=== PATIENT | male | born 1940 | race Caucasian/White ===

== ENCOUNTER 2017-05-02 09:45 | Emergency (ER) | payer OTHER ==
[~2017-05-02] VITALS: Ht 180.3 cm; Wt 75.5 kg
[~2017-05-02 09:45] MED LIST: ALBUAER2 INH; BRVIN INH; IPRASOL4 INH; LACTCAP3 PO; LEVO-18 PO; MONT1TAB3 PO; OXYC-106 PO; PLMINS INH
[2017-05-02 09:49] VITALS: TEMP 36.6; Ht 180.3 cm; Wt 75.5 kg
[2017-05-02] MEDS ORDERED: ALBUT/IPRATROP 3MG/0.5MG NEB 3 ML VIAL INH STA (09:52)
[2017-05-02] MEDS ORDERED: SODIUM CHLORIDE 0.9% 1000ML 1,000 ML IV STA (09:52)
[2017-05-02 10:02] VITALS: PULSE 92; O2SAT 100; O2SAT 97
[2017-05-02 10:07] LABS: BASO % 0.6 %; BASO ABS # 0.06 K/uL (0-0.2); EOS % 6.4 %; HEMATOCRIT 45.8 % (42-52); IG% 0.4 %; LYMPH % 45.9 %; LYMPH ABS # 4.42 K/uL (1.2-3.4); MEAN CELL VOLUME 96.8 fL (80-100); MEAN CORPUSCULAR HEMOGLOBIN 32.6 pg (25-34); MEAN CORPUSCULAR HGB CONC 33.6 g/dl (32-36); MONO % 8.6 %; NEUT % 38.1 %; PLATELET COUNT 211 K/uL (130-400); RED BLOOD COUNT 4.73 M/uL (4.7-6.1); WHITE BLOOD COUNT 9.62 K/uL (4.8-10.8)
--- NOTE | 2017-05-02 10:15 | EMERGENCY ROOM VISIT NOTE ---
History Report prepared by Sylvia: Duncan Mackey Under the Supervision of: Dr. Asael Hutchinson M.D. First contact with patient: 09:47 Chief Complaint: RESPIRATORY PROBLEMS Stated Complaint: RESPIRATORY History of Present Illness The patient is a 76 year old male who presents to the Emergency Room by EMS with complaints of persistent shortness of breath beginning this morning. He was given 4 DuoNeb treatments, Nitroglycerin and received 125 mg of Solu-Medrol en route. He states that his symptoms began this morning after waking up and going to the bathroom. The patient states that his breathing was at his baseline prior to leaving the bathroom this morning. He denies any fevers, or coughing. He used breathing treatments today prior to the arrival of EMS which did not improve his symptoms. He states that he has been using steroids at home which typically improves his breathing. The patient has a history of COPD. He was given the Nitroglycerin en route for elevated blood pressure. Source of History: patient Onset: This morning Quality: other (shortness of breath) Timing: other (persistent) Modifying Factors (Relieving): other (Steroids) Associated Symptoms: No fevers, No cough Review of Systems See HPI for pertinent positives & negatives. A total of 10 systems reviewed and were otherwise negative. Past Medical & Surgical Medical Problems: (1) Arthritis (2) COPD exacerbation (3) Diab Amisha Wo Compl, Type Ii Or Unspec Type, Not Uncntrld Family History Diabetes mellitus Heart disease Lung disease Social History Smoking Status: Current Every Day Smoker Alcohol Use: none Drug Use: none Marital Status: Housing Status: lives with significant other Occupation Status: unemployed Current/Historical Medications Scheduled Budesonide/Formoterol Fumarate (Symbicort 80-4.5 Mcg/Act), 2 PUFFS INH BID Prednisone (Prednisone), 5 MG PO DAILY Prednisone (Prednisone), 0 PO DAILY Tiotropium [place] (Spiriva Handihaler), 1 CAP INH DAILY Scheduled PRN Albuterol Hfa (Ventolin Hfa), 2-4 PUFFS INH Q6H PRN for SOB/Wheezing Albuterol Sulf (Proventil 0.083% 2.5MG/3ML), 2.5 MG INH QID PRN for SOB/Wheezing Allergies Coded Allergies: Cortisone (Verified Adverse Reaction, Intermediate, BODY FEELS LIKE IT'S EXPLODING, 10/23/15) Physical Exam Vital Signs Date Time Temp Pulse Resp B/P (MAP) Pulse Ox O2 Delivery O2 Flow Rate FiO2 05/02/17 12:33 92 18 146/94 95 05/02/17 11:45 90 24 112/75 95 Room Air 05/02/17 11:03 85 24 116/84 99 BiPAP 30 05/02/17 10:05 89 05/02/17 10:02 100 BiPAP 30 05/02/17 10:02 92 97 30 05/02/17 09:49 94 Room Air 05/02/17 09:49 36.6 99 28 136/86 95 Room Air Physical Exam GENERAL: Patient is in no acute distress. HEENT: No acute trauma, normocephalic atraumatic, mucous membranes moist, no nasal congestion, no scleral icterus. NECK: No stridor, no adenopathy, no meningismus, trachea is midline. LUNGS: Bilateral wheezing with equal breath sounds. Mild respiratory distress. Speaking in short sentences. Increased respiratory rate. HEART: Unable to auscultate cardiac tones secondary to lung sounds. ABDOMEN: Soft, nontender, bowel sounds positive, no hernias, no peritonitis. EXTREMITIES: No cyanosis or edema, full range of motion of all the joints without pain or difficulty, no signs for acute trauma. NEUROLOGIC: Oriented x 3, no acute motor or sensory deficits, no focal weakness. SKIN: No rash, no jaundice, no diaphoresis. Medical Decision & Procedures ER Provider Diagnostic Interpretation: X-ray results as stated below per interpretation by me and the radiologist: CHEST ONE VIEW PORTABLE FINDINGS: The cardiac and mediastinal contours remain stable. There is no failure. There is no focal pulmonary consolidation. There are no pleural effusions. There is scattered postinflammatory calcifications within the upper lung zones.[ IMPRESSION: No active disease in the chest. Electronically signed by: Ag Peterson M.D. 05/02/2017 10:23 AM Laboratory Results 05/02/17 09:30 Red Blood Count 4.73, Mean Corpuscular Volume 96.8, Mean Corpuscular Hemoglobin 32.6, Mean Corpuscular Hemoglobin Concent 33.6, Mean Platelet Volume 11.0, Neutrophils (%) (Auto) 38.1, Lymphocytes (%) (Auto) 45.9, Monocytes (%) (Auto) 8.6, Eosinophils (%) (Auto) 6.4, Basophils (%) (Auto) 0.6, Neutrophils # (Auto) 3.65, Lymphocytes # (Auto) 4.42, Monocytes # (Auto) 0.83, Eosinophils # (Auto) 0.62, Basophils # (Auto) 0.06 05/02/17 09:30 Test 05/02/17 09:30 White Blood Count 9.62 K/uL (4.8-10.8) Red Blood Count 4.73 M/uL (4.7-6.1) Hemoglobin 15.4 g/dL (14.0-18.0) Hematocrit 45.8 % (42-52) Mean Corpuscular Volume 96.8 fL (80-100) Mean Corpuscular Hemoglobin 32.6 pg (25-34) Mean Corpuscular Hemoglobin Concent 33.6 g/dl (32-36) Platelet Count 211 K/uL (130-400) Mean Platelet Volume 11.0 fL (7.4-10.4) Neutrophils (%) (Auto) 38.1 % Lymphocytes (%) (Auto) 45.9 % Monocytes (%) (Auto) 8.6 % Eosinophils (%) (Auto) 6.4 % Basophils (%) (Auto) 0.6 % Neutrophils # (Auto) 3.65 K/uL (1.4-6.5) Lymphocytes # (Auto) 4.42 K/uL (1.2-3.4) Monocytes # (Auto) 0.83 K/uL (0.11-0.59) Eosinophils # (Auto) 0.62 K/uL (0-0.5) Basophils # (Auto) 0.06 K/uL (0-0.2) RDW Standard Deviation 51.5 fL (36.4-46.3) RDW Coefficient of Variation 14.4 % (11.5-14.5) Immature Granulocyte % (Auto) 0.4 % Immature Granulocyte # (Auto) 0.04 K/uL (0.00-0.02) Red Blood Cell Morphology Unremarkable Anion Gap 8.0 mmol/L (3-11) Est Creatinine Clear Calc Drug Dose 62.7 ml/min Estimated GFR () 76.2 Estimated GFR (Non- 65.8 BUN/Creatinine Ratio 19.7 (10-20) Calcium Level 9.0 mg/dl (8.5-10.1) Magnesium Level 2.3 mg/dl (1.8-2.4) Total Bilirubin 0.7 mg/dl (0.2-1) Aspartate Amino Transf (AST/SGOT) 19 U/L (15-37) Alanine Aminotransferase (ALT/SGPT) 24 U/L (12-78) Alkaline Phosphatase 89 U/L (45-117) Troponin I 0.033 ng/ml (0-0.045) Total Protein 6.9 gm/dl (6.4-8.2) Albumin 3.7 gm/dl (3.4-5.0) Globulin 3.2 gm/dl (2.5-4.0) Albumin/Globulin Ratio 1.2 (0.9-2) Laboratory results reviewed by me. Medications Administered Medications (Trade) Dose Ordered Sig/Eros Route Start Time Stop Time Status Last Admin Dose Admin Albuterol/ Ipratropium (Duoneb) 12 ml NOW STAT INH 05/02/17 09:52 05/02/17 09:55 DC 05/02/17 10:26 12 ML Sodium Chloride 1,000 ml @ 125 mls/hr Q8H STAT IV 05/02/17 09:52 05/02/17 17:51 05/02/17 10:28 125 MLS/HR ECG Indication: SOB/dyspnea Rate (beats per minute): 87 Rhythm: sinus rhythm Findings: PAC, no acute ischemic change, no ectopy ED Course 0950: The patient was evaluated in room A9B. A complete history and physical exam was performed. Ordered BiPAP for the patient. 0952: Ordered DuoNeb 12 mL INH, Sodium Chloride 1000 ml @ 125 mls/hr IV. 1128: I spoke with the patient. He does not want to stay in the hospital. BiPAP was removed to see how the patient was able to breath on room air. 1206: Reevaluated the patient. His breathing is at his baseline according to him. Discussed results and discharge instructions: he verbalized understanding and agreement. The patient is ready for discharge. Medical Decision The patient is a 76 year old male who presents to the ED with complaints of shortness of breath. Differential diagnoses considered include exacerbation of COPD, CHF, pneumonia, pneumothorax, bronchitis, and cardiac ischemia. Blood pressure screening: Patient was found to have a slightly elevated blood pressure due to circumstances. I do not believe that the patient requires hypertension monitoring. Medication Reconciliation: I attest that I have personally reviewed the patient' s current medication list. There is no leukocytosis or concerning anemia. No significant electrolyte abnormality, kidney failure or hepatitis. EKG shows a sinus rhythm, no acute ischemia. Cardiac enzyme testing times one is not consistent with acute cardiac injury. Chest film shows COPD, no CHF, pneumothorax or pneumonia. The patient had already received IV Solu-Medrol. In our ED, he was placed on BiPAP with a continuous DuoNeb. Within about an hour or 2, the patient felt markedly better. He BiPAP was discontinued and he felt at baseline. I discussed a hospital stay with him given the circumstances, he has refused. The patient is being discharged on a prednisone taper. He will continue his nebulizers as an outpatient. He will see his doctor this week. If his breathing worsens, he has agreed to return back for reassessment. The patient appears to be suffering from an exacerbation of COPD. Impression Primary Impression: SOB (shortness of breath) Additional Impression: COPD exacerbation Scribe Attestation The scribe's documentation has been prepared under my direction and personally reviewed by me in its entirety. I confirm that the note above accurately reflects all work, treatment, procedures, and medical decision making performed by me. Departure Information Dispostion Home / Self-Care Prescriptions Prednisone (Prednisone) 20 Mg Tab 0 PO DAILY, #14 TAB 3 TABS DAILY FOR 2 DAYS, THEN 2 TABS DAILY FOR 2 DAYS, THEN 1 TAB DAILY FOR 2 DAYS, THEN 1/2 TAB DAILY FOR 2 DAYS. Prov: Asael Hutchinson M.D. 05/02/17 Referrals No Doctor, Assigned (PCP) Forms HOME CARE DOCUMENTATION FORM, IMPORTANT VISIT INFORMATION, WORK / SCHOOL INSTRUCTIONS Patient Instructions My [facility] Entrisphere Additional Instructions continue nebs every 4 hours start prednisone taper tomorrow see gabbie hobson this week return for worsening breathing or symptoms Problem Qualifiers
[2017-05-02 10:23] LABS: CREATININE 1.1 mg/dl (0.60-1.40)
[2017-05-02 10:24] LABS: BUN/CREATININE RATIO 19.7 (10-20); MAGNESIUM 2.3 mg/dl (1.8-2.4); POTASSIUM 4.1 mmol/L (3.5-5.1)
--- NOTE | 2017-05-02 10:24 | DIAGNOSTIC IMAGING REPORT ---
CHEST ONE VIEW PORTABLE CLINICAL HISTORY: Respiratory distress COMPARISON STUDY: 10/23/2015 FINDINGS: The cardiac and mediastinal contours remain stable. There is no failure. There is no focal pulmonary consolidation. There are no pleural effusions. There is scattered postinflammatory calcifications within the upper lung zones.[ IMPRESSION: No active disease in the chest. Electronically signed by: Ag Peterson M.D. 05/02/2017 10:23 AM Dictated Date/Time: 05/02/2017 10:22 AM
[2017-05-02 10:28] LABS: ALB/GLOB RATIO 1.2 (0.9-2)
[2017-05-02 10:33] LABS: COMPLETE YES
[2017-05-02] MEDS ORDERED: SPRIN/30 INH (11:52)
[2017-05-02] MEDS ORDERED: PRED10TA PO (11:52)
[2017-05-02] MEDS ORDERED: VNTHFA/IN INH (11:52)
[2017-05-02] MEDS ORDERED: ALBINS/ INH (11:52)
[2017-05-02] MEDS ORDERED: SYMIN8045 INH (11:52)
[2017-05-02] MEDS ORDERED: PRED20TA PO (12:23)
[2017-05-02 12:33] VITALS: BP 146/94; PULSE 92; O2SAT 95
== END 2017-05-02 12:34 | disposition home or self-care (01) ==
LOC: EDBD 09:45 → C.EDA 09:47
DX: R06.02 Shortness of breath (principal); J44.1 Chronic obstructive pulmonary disease with (acute) exacerbation; M19.90 Unspecified osteoarthritis, unspecified site; E11.9 Type 2 diabetes mellitus without complications; Z83.3 Family history of diabetes mellitus; Z82.49 Family history of ischemic heart disease and other diseases of the circulatory system; F17.200 Nicotine dependence, unspecified, uncomplicated

== ENCOUNTER 2021-12-02 12:21 | Inpatient (IN) ==
--- NOTE | 2021-12-02 13:49 | XRay Report ---
XR ribs RT min 2V w CXR1V HISTORY: 81 years-old Male r rib pain acute right-sided rib pain COMPARISON: Chest radiograph 05/02/2017 TECHNIQUE: AP view of the chest with 4 views of the right ribs FINDINGS: Scattered bilateral calcifications redemonstrated. The cardiomediastinal and hilar silhouettes are un changed. No pneumothorax, pleural effusion, airspace consolidation or overt pulmonary edema. Rotator cuff calcific tendinosis of the right shoulder. No acute displaced rib fracture. IMPRESSION: 1. No acute processes of the chest. 2. No acute displaced rib fracture or pneumothorax. ACT 112: Negative or not required by law. The above report was generated using voice recognition software. It may contain grammatical, syntax o r spelling errors. Electronically signed by: Bijan Bauer M.D. 12/02/2021 1:48 PM
[2021-12-02 14:00] LABS: Basophils # (auto) 0.02 K/uL (0-0.2); Basophils % (auto) 0.2 %; Eosinophils # (auto) 0.09 K/uL (0-0.5); Eosinophils % (auto) 0.9 %; Hematocrit (blood only) 43.1 % (42-52); Hemoglobin 14.4 g/dL (14.0-18.0); Immature Granulocytes # (auto) 0.02 K/uL (0.00-0.02); Immature Granulocytes % (auto) 0.2 %; Lymphocytes # (auto) 1.35 K/uL (1.2-3.4); Lymphocytes % (auto) 13.5 %; Mean Corpuscular Hemoglobin 32.3 pg (25-34); Mean Corpuscular Hgb Conc 33.4 g/dL (32-36); Mean Corpuscular Volume 96.6 fL (80-100); Mean Platelet Volume 10.8 fL (7.4-10.4); Monocytes # (auto) 1.08 K/uL (0.11-0.59); Monocytes % (auto) 10.8 %; Neutrophils # (auto) 7.43 K/uL (1.4-6.5); Neutrophils % (auto) 74.4 %; Platelet Count 287 K/uL (130-400); RDW Coefficient of Variation 14.2 % (11.5-14.5); RDW Standard Deviation 51.2 fL (36.4-46.3); Red Blood Count 4.46 M/uL (4.7-6.1); White Blood Count 9.99 K/uL (4.8-10.8)
[2021-12-02] MEDS ORDERED: SODIUM CHLORIDE 0.9% 1000ML 1,000 ML IV SCH (14:15)
[2021-12-02 14:18] LABS: Alanine Aminotransferase 20 U/L (7-52); Albumin Globulin Ratio 1.4 (0.9-2); Albumin Level 3.8 gm/dl (3.4-5.0); Alkaline Phosphatase 69 U/L (34-104); Anion Gap 8 (3-11); Aspartate Aminotransferase 58 U/L (13-39); BUN Creatinine Ratio 37.9 (10-20); Bilirubin,Total 1.1 mg/dl (0.2-1.0); Blood Urea Nitrogen 25 mg/dl (6-23); Carbon Dioxide 28 mmol/L (21-32); Chloride 99 mmol/L (98-107); Est GFR (African American) 106.6 ml/min; Globulin 2.8 gm/dl (2.5-4.0); Glucose 84 mg/dl (70-99(Fasting)); Sodium 135 mmol/L (136-145); Total Protein 6.6 gm/dl (6.0-8.3)
[2021-12-02] MEDS ORDERED: SODIUM CHLORIDE 0.9% 1000ML 500 ML IV ONE (15:06)
[2021-12-02] MEDS ORDERED: ACETAMINOPHEN 1,000 MG/100 ML VIAL IV STA (15:06)
--- NOTE | 2021-12-02 15:06 | Emergency Department Note ---
History of Present Illness General Chief complaint: Rib Injury/Pain Stated complaint: R FLANK PAIN Time Seen by Provider: 12/02/21 14:26 Source: patient Mode of arrival: EMS Limitations: no limitations History of Present Illness Provider complaint: right side pain, fall Onset (ago): day(s) 1 Maximum Pain Intensity: 9 This is a 81-year-old male who presents via EMS due to concern for pain in his right side. Patient states he fell yesterday while attempting to get up out of the chair at home. He states no one was there at the time so he laid on the ground on his right-hand side for 5 to 6 hours. He states when his son's girlfriend eventually got home she helped him get up. He states pain persisted overnight into today. He states family was concerned due to the persistent pain and recommended he come in for evaluation. Patient states pain is waxing and w aning, worse with position, and mostly in his right flank. Patient denies any difficulty breathing although he was initially noted to be hypoxic by staff and was placed on 2 L via nasal cannula. Patient states he does not typically wear oxygen at home. Patient does have a history of COPD and does use nebulizer treatments. Patient states as a result of this incident yesterday he did not have anything to eat or drink. Patient denies any use of antiplatelet or anticoagulation therapy. Patient denies any accompanying neck pain, back pain, numbness or tingling. Patient denies any concern for extremity injury although does admit to right upper extremity pain. Patient denies head injury or loss of consciousness. Pt seen during a time of high acuity and national emergency pandemic while wearing PPE. Home Medications Medication Instructions Recorded Confirmed Type prednisone 5 mg tablet 15 mg PO DAILY 04/12/20 12/02/21 History albuterol sulfate 2.5 mg INHALATION Q6H PRN ml 10/15/20 12/02/21 History albuterol sulfate 90 mcg/actuation 2 puff INHALATION Q4H PRN g 10/15/20 12/02/21 History aerosol inhaler (Ventolin HFA) alendronate 70 mg tablet 70 mg PO Q7D tab 10/15/20 12/02/21 History aspirin 81 mg tablet,delayed 81 mg PO DAILY 10/15/20 12/02/21 History release cholecalciferol (vitamin D3) 25 25 mcg PO DAILY 10/15/20 12/02/21 History mcg (1,000 unit) capsule folic acid 1 mg tablet 1 mg PO DAILY 10/15/20 12/02/21 History tiotropium bromide 18 mcg capsule 1 cap INHALATION DAILY 10/15/20 12/02/21 History with inhalation device duloxetine 20 mg capsule,delayed 20 mg PO DAILY 12/02/21 12/02/21 History release finasteride 5 mg tablet 5 mg PO DAILY 12/02/21 12/02/21 History fluticasone 500 mcg-salmeterol 50 1 inh INHALATION BID 12/02/21 12/02/21 History mcg/dose blistr powdr for inhalation (Advair Diskus) metformin 500 mg tablet 500 mg PO BID 12/02/21 12/02/21 History nystatin 100,000 unit/mL oral 1 ml PO QID 12/02/21 12/02/21 History suspension rosuvastatin 10 mg tablet 10 mg PO DAILY 12/02/21 12/02/21 History tamsulosin 0.4 mg capsule 0.4 mg PO DAILY 12/02/21 12/02/21 History Allergies Allergy/AdvReac Type Severity Reaction Status Date / Time cortisone AdvReac Intermediate BODY FEELS Verified 12/02/21 18:00 LIKE IT'S EXPLODING Past Med/Surg History Medical History Anxiety and depression CAD (coronary artery disease) Chronic respiratory failure with hypoxia COPD (chronic obstructive pulmonary disease) Dementia Diabetes mellitus, type II Dyslipidemia PVD (peripheral vascular disease) Spinal stenosis Tobacco use Surgical History (Updated 12/02/21 @ 19:28 by Calista Portillo PA-C) No significant past surgical history Family History (Updated 12/02/21 @ 19:28 by Calista Portillo PA-C) Other COPD (chronic obstructive pulmonary disease) Social History (Updated 12/02/21 @ 19:29 by Calista Portillo PA-C) Smoking Status: Current every day smoker Hx Alcohol Use: No Hx Substance Use: No Preferred Language: Bulgarian [employer] Required: No Beliefs That Will Affect Care: None Current Living Situation: Family Current Living Situation Comment: lives with son and his girlfriend Feels Safe at Home: Yes Assistive Devices: Oxygen - Continuous and Walker Review of Systems A total of 10 systems reviewed and were otherwise negative All systems reviewed & are unremarkable except as noted in HPI & below Physical Exam Vital Signs Vital Signs - 24 hr 12/02/21 12:38 12/02/21 13:51 12/02/21 14:35 Temperature 37.5 C Temperature Source Temporal Artery Scan Pulse Rate 81 Pulse Rate [Apical] 78 Respiratory Rate 18 18 Respiratory Effort / Characteristics Non-Labored Non-Labored Spontaneous Respiratory Depth Normal Normal Respiratory Pattern Blood Pressure 84/50 L Blood Pressure [Right Arm] 101/55 L 94/58 L Blood Pressure Mean 61 Blood Pressure Mean [Right Arm] 70 70 Blood Pressure Position [Right Arm] Sitting Pulse Oximetry 97 100 Oxygen Delivery Method Nasal Cannula Nasal Cannula Oxygen Flow Rate 4 Sepsis Recent Fever Within 48 Hours No Sepsis New/Unexplained Change in Mental Status No Sepsis Action Taken by Nursing No Action Required 12/02/21 14:48 12/02/21 15:00 12/02/21 15:15 Temperature Temperature Source Pulse Rate 79 79 75 Pulse Rate [Apical] Respiratory Rate 21 19 13 Respiratory Effort / Characteristics Respiratory Depth Respiratory Pattern Blood Pressure 91/65 L Blood Pressure [Right Arm] Blood Pressure Mean 73 Blood Pressure Mean [Right Arm] Blood Pressure Position [Right Arm] Pulse Oximetry 100 100 Oxygen Delivery Method Nasal Cannula Nasal Cannula Oxygen Flow Rate 4 4 Sepsis Recent Fever Within 48 Hours Sepsis New/Unexplained Change in Mental Status Sepsis Action Taken by Nursing 12/02/21 15:30 12/02/21 15:31 12/02/21 15:45 Temperature Temperature Source Pulse Rate 79 80 82 Pulse Rate [Apical] Respiratory Rate 19 14 12 Respiratory Effort / Characteristics Respiratory Depth Respiratory Pattern Blood Pressure 93/67 L Blood Pressure [Right Arm] Blood Pressure Mean 75 Blood Pressure Mean [Right Arm] Blood Pressure Position [Right Arm] Pulse Oximetry 100 97 Oxygen Delivery Method Nasal Cannula Room Air Oxygen Flow Rate 4 Sepsis Recent Fever Within 48 Hours Sepsis New/Unexplained Change in Mental Status Sepsis Action Taken by Nursing 12/02/21 15:48 Temperature Temperature Source Pulse Rate Pulse Rate [Apical] Respiratory Rate Respiratory Effort / Characteristics Non-Labored Respiratory Depth Shallow Respiratory Pattern Regular Blood Pressure Blood Pressure [Right Arm] Blood Pressure Mean Blood Pressure Mean [Right Arm] Blood Pressure Position [Right Arm] Pulse Oximetry Oxygen Delivery Method Oxygen Flow Rate Sepsis Recent Fever Within 48 Hours Sepsis New/Unexplained Change in Mental Status Sepsis Action Taken by Nursing GENERAL: alert, unwell appearing, well nourished, no distress, non-toxic HEAD: nc/at, no leo sign, no raccoon eyes EYE EXAM: normal conjunctiva, PERRL and EOM's grossly intact OROPHARYNX: no exudate, no erythema, lips, buccal mucosa, and tongue normal and mucous membranes are moist NECK: supple, no nuchal rigidity, no adenopathy, non-tender LUNGS: Clear to auscultation. Normal chest wall mechanics, no w/r/r CHEST WALL: No crepitus, no pain with palpation over the ribs HEART: no murmurs, S1 normal and S2 normal ABDOMEN: abdomen soft, non-tender, normo-active bowel sounds, no masses, no rebound or guarding. PELVIS: stable to compression, no pain with palpation BACK: Back is symmetrical on inspection and there is no deformity, no midline tenderness, no CVA tenderness. SKIN: no rashes and no bruising UPPER EXTREMITIES: upper extremities are grossly normal. FROM, nml pulses b/l. Scattered bruising in various stages of healing. No obvious deformity. LOWER EXTREMITIES: No pitting edema. FROM, nml pulses b/l. No deformity or e vidence of trauma. NEURO EXAM: Normal sensorium, cranial nerves II-XII grossly intact, normal speech, no gross weakness of arms, no gross weakness of legs. Gross sensation intact. Course Course 170: sbp 105 after IVF. Discussed results with patient. 1801: Discussed with Olive Rodas hospitalist service. 1814: Updated patient's daughter who is now bedside. Administered Medications Acetaminophen (Acetaminophen 325 Mg Tab) 650 mg PO Q4H PRN PRN Reason: Pain or Fever Stop: 01/01/22 21:31 Last Admin: 12/03/21 09:21 Dose: 650 mg Documented by: [id number] Aspirin (Aspirin 81 Mg Ectab) 81 mg PO DAILY [facility] Stop: 01/02/22 08:59 Last Admin: 12/03/21 09:22 Dose: 81 mg Documented by: [id number] Duloxetine HCl (Duloxetine Hcl 20 Mg Cap) 20 mg PO DAILY [facility] Stop: 01/02/22 08:59 Last Admin: 12/03/21 09:22 Dose: 20 mg Documented by: [id number] Finasteride (Finasteride 5 Mg Tab) 5 mg PO DAILY [facility] Stop: 01/02/22 08:59 Last Admin: 12/03/21 09:22 Dose: 5 mg Documented by: [id number] Fluticasone/Vilanterol (Fluticasone/Vilanterol 200/25mcg 14 Puffs/Inhaler) 1 puffs INH DAILY [facility] Stop: 01/02/22 08:59 Last Admin: 12/03/21 12:21 Dose: 1 puffs Documented by: [id number] Folic Acid (Folic Acid 1 Mg Tab) 1 mg PO DAILY [facility] Stop: 01/02/22 08:59 Last Admin: 12/03/21 09:22 Dose: 1 mg Documented by: [id number] Heparin Sodium (Porcine) (Heparin Sod 5,000 Unit/0.5 Ml Vial) 5,000 units SQ Q12 [facility] Stop: 01/01/22 21:31 Last Admin: 12/03/21 09:31 Dose: 5,000 units Documented by: [id number] Admin: 12/02/21 23:34 Dose: 5,000 units Documented by: [id number] Insulin Aspart (Insulin Aspart Per Unit) 0 units SC ACHS [facility] Stop: 01/01/22 21:31 Last Admin: 12/03/21 17:11 Dose: Not Given Documented by: [id number] Admin: 12/03/21 12:21 Dose: Not Given Documented by: [id number] Admin: 12/03/21 09:15 Dose: Not Given Documented by: [id number] Admin: 12/02/21 23:34 Dose: Not Given Documented by: [id number] Cosigned by: [id number] Lidocaine (Lidocaine 5% 1 Patch) 1 patch TD HS [facility] Stop: 01/01/22 21:31 Last Admin: 12/02/21 23:35 Dose: 1 patch Documented by: [id number] Miscellaneous (Remove Lidoderm Patch) 1 ea N/A QAM [facility] Stop: 01/02/22 08:59 Last Admin: 12/03/21 09:31 Dose: 1 ea Documented by: [id number] Prednisone (Prednisone 5 Mg Tab) 15 mg PO DAILY [facility] Stop: 01/02/22 08:59 Last Admin: 12/03/21 09:23 Dose: 15 mg Documented by: [id number] Tamsulosin HCl (Tamsulosin Hcl 0.4 Mg Cap) 0.4 mg PO DAILY [facility] Stop: 01/02/22 08:59 Last Admin: 12/03/21 09:22 Dose: 0.4 mg Documented by: [id number] Vitamin D (Cholecalciferol 1,000 Units 25 Mcg Tab) 1,000 units PO DAILY [facility] Stop: 01/02/22 08:59 Last Admin: 12/03/21 09:23 Dose: 1,000 units Documented by: [id number] Discontinued Medications Albuterol (Albut/Ipratrop 3mg/0.5mg Neb 3 Ml Vial) 3 ml NEB NOW STA; Protocol Stop: 12/02/21 15:09 Last Admin: 12/02/21 15:46 Dose: 3 ml Documented by: [id number] Albuterol (Albut/Ipratrop 3mg/0.5mg Neb 3 Ml Vial) 3 ml NEB QIDR REECE; Protocol Stop: 01/02/22 06:59 Last Admin: 12/03/21 17:24 Dose: Not Given Documented by: [id number] Admin: 12/03/21 10:39 Dose: 3 ml Documented by: [id number] Admin: 12/03/21 07:04 Dose: 3 ml Documented by: [id number] Sodium Chloride (Nss 1000ml) 1,000 mls @ 999 mls/hr IV .Q1H1M REE[facility] Stop: 12/02/21 15:15 Last Infusion: 12/02/21 15:51 Dose: 0 mls/hr Documented by: [id number] Admin: 12/02/21 14:07 Dose: 999 mls/hr Documented by: [id number] Sodium Chloride (Nss 1000ml) 500 mls @ 999 mls/hr IV .Q31M ONE Stop: 12/02/21 15:36 Last Infusion: 12/02/21 16:22 Dose: 0 mls/hr Documented by: [id number] Admin: 12/02/21 15:51 Dose: 999 mls/hr Documented by: [id number] Acetaminophen (Ofirmev) 1,000 mg in 100 mls @ 400 mls/hr IV NOW STA Stop: 12/02/21 15:20 Last Infusion: 12/02/21 16:05 Dose: 0 mls/hr Documented by: [id number] Admin: 12/02/21 15:46 Dose: 400 mls/hr Documented by: [id number] Lactated Ringer's (Lr) 1,000 mls @ 250 mls/hr IV .Q4H REECE Stop: 01/01/22 16:14 Last Admin: 12/02/21 22:26 Dose: Not Given Documented by: [id number] Infusion: 12/02/21 22:25 Dose: 0 mls/hr Documented by: [id number] Admin: 12/02/21 18:13 Dose: 250 mls/hr Documented by: [id number] Sodium Chloride (Nss 1000ml) 1,000 mls @ 125 mls/hr IV .Q8H REECE Stop: 12/03/21 13:31 Last Infusion: 12/03/21 14:25 Dose: 0 mls/hr Documented by: [id number] Admin: 12/03/21 06:30 Dose: 125 mls/hr Documented by: [id number] Infusion: 12/03/21 06:30 Dose: 125 mls/hr Documented by: [id number] Admin: 12/02/21 23:51 Dose: 125 mls/hr Documented by: [id number] Ioversol (Optiray 320 100ml) 94 ml IV ONCE ONE Stop: 12/02/21 16:23 Last Admin: 12/02/21 16:25 Dose: 94 ml Documented by: [id number] Ketorolac Tromethamine (Ketorolac Tromethamine 15 Mg/Ml Vial) Confirm Administered Dose 15 mg .ROUTE .STK-MED ONE Stop: 12/02/21 20:13 Last Admin: 12/02/21 20:16 Dose: 15 mg Documented by: [id number] Ketorolac Tromethamine (Ketorolac Tromethamine 15 Mg/Ml Vial) 15 mg IV NOW ONE Stop: 12/02/21 21:33 Last Admin: 12/02/21 23:35 Dose: Not Given Documented by: [id number] Oxycodone HCl (Oxycodone Hcl Ir 5 Mg Tab (Immediate Release)) 5 mg PO Q6H PRN PRN Reason: Moderate Pain Stop: 12/16/21 21:31 Last Admin: 12/03/21 09:20 Dose: 5 mg Documented by: [id number] Admin: 12/03/21 02:27 Dose: 5 mg Documented by: [id number] Medical Decision Making Differential Diagnosis Differential diagnoses include major intracranial, cervical, spinal, thoracic, abdominal, pelvic and neurologic injury. Fracture, contusion, sprain, strain, laceration, abrasions included as well. Medical Records Attestation: I reviewed the patient's medical records. Home Medications Current Medication List: was personally reviewed by me Laboratory Data Attestation: I reviewed the patient's lab results. Result diagrams: 12/03/21 06:37 12/03/21 06:37 Lab Results 12/02/21 12/02/21 12/02/21 Range/Units 13:48 13:48 13:48 WBC 9.99 (4.8-10.8) K/uL RBC 4.46 L (4.7-6.1) M/uL Hgb 14.4 (14.0-18.0) g/dL Hct 43.1 (42-52) % MCV 96.6 (80-100) fL MCH 32.3 (25-34) pg MCHC 33.4 (32-36) g/dL RDW Std Deviation 51.2 H (36.4-46.3) fL RDW Coeff of Lupillo 14.2 (11.5-14.5) % Plt Count 287 (130-400) K/uL MPV 10.8 H (7.4-10.4) fL Immature Gran % (Auto) 0.2 % Neut % (Auto) 74.4 % Lymph % (Auto) 13.5 % Moody % (Auto) 10.8 % Eos % (Auto) 0.9 % Baso % (Auto) 0.2 % Neut # (Auto) 7.43 H (1.4-6.5) K/uL Lymph # (Auto) 1.35 (1.2-3.4) K/uL Moody # (Auto) 1.08 H (0.11-0.59) K/uL Eos # (Auto) 0.09 (0-0.5) K/uL Baso # (Auto) 0.02 (0-0.2) K/uL Immature Gran # (Auto) 0.02 (0.00-0.02) K/uL Sodium 135 L (136-145) mmol/L Potassium 4.0 (3.5-5.1) mmol/L Chloride 99 (98-107) mmol/L Carbon Dioxide 28 (21-32) mmol/L Anion Gap 8 (3-11) BUN 25 H (6-23) mg/dl Creatinine 0.66 (0.6-1.4) mg/dl Est Cr Clr Drug Dosing Not Reportable Est GFR ( Amer) 106.6 ml/min Est GFR (Non-Af Amer) 92.0 ml/min BUN/Creatinine Ratio 37.9 H (10-20) Glucose 84 (70-99(Fasting)) mg/dl Calcium 9.0 (8.5-10.1) mg/dl Total Bilirubin 1.1 H (0.2-1.0) mg/dl AST 58 H (13-39) U/L ALT 20 (7-52) U/L Alkaline Phosphatase 69 (34-104) U/L Total Creatine Kinase 2488 H (30-223) U/L Total Protein 6.6 (6.0-8.3) gm/dl Albumin 3.8 (3.4-5.0) gm/dl Globulin 2.8 (2.5-4.0) gm/dl Albumin/Globulin Ratio 1.4 (0.9-2) Imaging Data Radiologist's Impression: Ribs w/Chest X-Ray 12/02/21 13:01 XR ribs RT min 2V w [id number] HISTORY: 81 years-old Male r rib pain acute right-sided rib pain COMPARISON: Chest radiograph 05/02/2017 TECHNIQUE: AP view of the chest with 4 views of the right ribs FINDINGS: Scattered bilateral calcifications redemonstrated. The cardiomediastinal and hilar silhouettes are unchanged. No pneumothorax, pleural effusion, airspace consolidation or overt pulmonary edema. Rotator cuff calcific tendinosis of the right shoulder. No acute displaced rib fracture. IMPRESSION: 1. No acute processes of the chest. 2. No acute displaced rib fracture or pneumothorax. ACT 112: Negative or not required by law. The above report was generated using voice recognition software. It may contain grammatical, syntax or spelling errors. Electronically signed by: Bijan Bauer M.D. 12/02/2021 1:48 PM Abdomen/Pelvis CT 12/02/21 15:06 CT abd pelvis IV con only CLINICAL HISTORY: trauma, right flank pain COMPARISON STUDY: 01/04/2015 CT DOSE: 254.96 mGy.cm TECHNIQUE: Standard CT of the Abdomen and Pelvis was performed with IV contrast. A dose lowering technique was utilized adhering to the principles of ALARA. Contrast Volume: Optiray 320, 94 ml. The patient did not receive oral contrast . FINDINGS: Lung base: The lung bases are clear. Abdominal cavity: There is no evidence for abdominal mass, adenopathy or ascites. Liver: There is homogeneous attenuation of the liver parenchyma. There is no evidence for enhancing mass lesion. Spleen: There is homogeneous attenuation of the splenic parenchyma. There is no enhancing mass lesion. Pancreas: There is homogeneous attenuation of the pancreatic parenchyma. There is no evidence for mass lesion or peripancreatic fluid collection. Gall Bladder: The gallbladder is well distended with no evidence for intraluminal calculi, wall thickening or pericholecystic edema. Adrenal glands: The adrenal glands are normal in size and attenuation. There is no evidence for enhancing mass lesion. Kidneys: There is homogeneous attenuation of the renal parenchyma bilaterally. There is no evidence for renal calculus or hydronephrosis. There is no evidence for enhancing mass. Bowel: The bowel loops are normally placed within the abdomen and pelvis without evidence for dilatation or obstruction. There is no evidence for mass lesion. There is mild fecal stasis without impaction or obstruction. There are no inflammatory changes present. There is no evidence for free air. The appendix is not visualized. Bladder: Bladder is distended with diffuse thickening of bladder wall. This also very prominent encroachment upon the floor the bladder which is most likely re lated to the patient's enlarged prostate. Clinical correlation for hematuria is recommended. : There is no evidence for pelvic mass or adenopathy. There is no evidence for pelvic ascites. There is moderate to marked enlargement of the prostate, encroachment upon the floor the bladder. Vasculature: There is no evidence for aneurysmal dilatation of the abdominal aorta. Marked atherosclerotic calcification is again seen involving the abdominal aorta. Osseous structures: There is no acute osseous pathology. Degenerative changes are seen within the lumbar spine. IMPRESSION: 1. No acute intra-abdominal or pelvic abnormality. 2. Chronic changes are present as delineated above. ACT 112: Negative or not required by law. Electronically signed by: Cheo Garcia M.D. 12/02/2021 4:51 PM Forearm X-Ray 12/02/21 15:07 XR forearm RT 2V CLINICAL HISTORY: Right arm numbness and pain. COMPARISON STUDY: No previous studies for comparison. TECHNIQUE: AP and lateral right forearm views FINDINGS: Bones: There is no evidence for an acute fracture or dislocation. There is no lytic or blastic lesion. Joints: The joint spaces are maintained. The bones are in anatomic alignment. Soft tissues: There is no focal soft tissue abnormality. There is soft tissue calcification seen at the insertion of the triceps tendon characteristic of mild chronic insertional tendinopathy. There is no radiopaque foreign body. IMPRESSION: 1. No acute osseous pathology. 2. 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 ACT 112: Negative or not required by law. Electronically signed by: Cheo Garcia M.D. 12/02/2021 3:58 PM Humerus X-Ray 12/02/21 15:07 XR humerus RT 2V CLINICAL HISTORY: pain, trauma TECHNIQUE: 2 radiographic views of the right humerus were obtained. Comparison: None available at the time of this dictation. FINDINGS: There is no evidence for fracture, subluxation or dislocation. There is normal anatomic alignment of the bones. The visualized portion of the shoulder and elbow joints are unremarkable. There is normal bone mineralization. The soft tissues are unremarkable. IMPRESSION: No acute osseous injury ACT 112: Negative or not required by law. Electronically signed by: Asad Ramirez M.D. 12/02/2021 3:46 PM ECG Data Attestation: I personally reviewed and interpreted this ECG as follows: Indication: + weakness Rate (beats per minute): 74 Rhythm: + normal sinus ECG Intervals/blocks: + Normal QRS and + Normal QT ECG Gallant: + Normal ECG ST segments: + Nonspecific ST abnormalities Additional Comments: Significant baseline artifact noted MDM Narrative This is a 81-year-old male presents emergency department complaining of abdominal pain from fall yesterday. Patient complains of persistent right side pain since this fall. Patient denies any use of antiplatelet or anticoagulation therapy. Patient found to be mildly hypoxic and hypotensive on arrival here. IV fluids were started by nursing staff and patient was placed on oxygen via nasal cannula. Patient's blood pressure did improve with IV fluids. Patient's kidney function was suggestive of dehydration, patient also found to be in rhabdomyolysis. IV fluids were continued. No other evidence of occult traumatic injury on CT and x-ray imaging. Patient was given pain medication. Case discussed with hospitalist for additional evaluation and management. UA still pending at the time of this discussion. An order was placed for continuous cardiac monitoring. The monitor shows a rate of _82_ with _normal sinus__ rhythm. Impression & Plan Right sided abdominal pain, COPD (chronic obstructive pulmonary disease), Rhabdomyolysis, Fall, Dehydration Discharge Plan Visit Data Chief Complaint: Rib Injury/Pain Stated Complaint: R FLANK PAIN ED Provider: Mary Mohan Discharge Problem: Right sided abdominal pain, COPD (chronic obstructive pulmonary disease), Rhabdomyolysis, Fall, Dehydration Patient Disposition: Admitted As Inpatient Discharge Instructions Interventions: ED Discharge Assessment Last Done: 12/02/21 21:00 Discharge Problem: COPD (chronic obstructive pulmonary disease) Qualifiers: COPD type: unspecified COPD Qualified Code(s): J44.9 - Chronic obstructive pulmonary disease, unspecified Rhabdomyolysis Qualifiers: Rhabdomyolysis type: traumatic Encounter type: initial encounter Qualified Code(s): T79.6XXA - Traumatic ischemia of muscle, initial encounter Fall Qualifiers: Encounter type: initial encounter Qualified Code(s): W19.XXXA - Unspecified fall, initial encounter
[2021-12-02] MEDS ORDERED: ALBUT/IPRATROP 3MG/0.5MG NEB 3 ML VIAL NEB STA (15:08)
--- NOTE | 2021-12-02 15:47 | XRay Report ---
XR humerus RT 2V CLINICAL HISTORY: pain, trauma TECHNIQUE: 2 radiographic views of the right humerus were obtained. Comparison: None available at the time of this dictation. FINDINGS: There is no evidence for fracture, subluxation or dislocation. There is normal anatomic alignment of the bones. The visualized portion of the shoulder and elbow joints are unremarkable. There is normal bone mineralization. The soft tissues are unremarkable. IMPRESSION: No acute osseous injury ACT 112: Negative or not required by law. Electronically signed by: Asad Ramirez M.D. 12/02/2021 3:46 PM
--- NOTE | 2021-12-02 15:59 | XRay Report ---
XR forearm RT 2V CLINICAL HISTORY: Right arm numbness and pain. COMPARISON STUDY: No previous studies for comparison. TECHNIQUE: AP and lateral right forearm views FINDINGS: Bones: There is no evidence for an acute fracture or dislocation. There is no lytic or blastic lesion . Joints: The joint spaces are maintained. The bones are in anatomic alignment. Soft tissues: There is no focal soft tissue abnormality. There is soft tissue calcification seen at t he insertion of the triceps tendon characteristic of mild chronic insertional tendinopathy. There is no radiopaque foreign body. IMPRESSION: 1. No acute osseous pathology. 2. 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 ACT 112: Negative or not required by law. Electronically signed by: Cheo Garcia M.D. 12/02/2021 3:58 PM
[2021-12-02] MEDS ORDERED: OPTIRAY 320 100ml IV ONE (16:22)
--- NOTE | 2021-12-02 16:52 | CT Scan Report ---
CT abd pelvis IV con only CLINICAL HISTORY: trauma, right flank pain COMPARISON STUDY: 01/04/2015 CT DOSE: 254.96 mGy.cm TECHNIQUE: Standard CT of the Abdomen and Pelvis was performed with IV contrast. A dose lowering savannah hnique was utilized adhering to the principles of ALARA. Contrast Volume: Optiray 320, 94 ml. The patient did not receive oral contrast. FINDINGS: Lung base: The lung bases are clear. Abdominal cavity: There is no evidence for abdominal mass, adenopathy or ascites. Liver: There is homogeneous attenuation of the liver parenchyma. There is no evidence for enhancing m ass lesion. Spleen: There is homogeneous attenuation of the splenic parenchyma. There is no enhancing mass lesion . Pancreas: There is homogeneous attenuation of the pancreatic parenchyma. There is no evidence for mas s lesion or peripancreatic fluid collection. Gall Bladder: The gallbladder is well distended with no evidence for intraluminal calculi, wall thick ening or pericholecystic edema. Adrenal glands: The adrenal glands are normal in size and attenuation. There is no evidence for enhan cing mass lesion. Kidneys: There is homogeneous attenuation of the renal parenchyma bilaterally. There is no evidence f or renal calculus or hydronephrosis. There is no evidence for enhancing mass. Bowel: The bowel loops are normally placed within the abdomen and pelvis without evidence for dilatat ion or obstruction. There is no evidence for mass lesion. There is mild fecal stasis without impactio n or obstruction. There are no inflammatory changes present. There is no evidence for free air. The a ppendix is not visualized. Bladder: Bladder is distended with diffuse thickening of bladder wall. This also very prominent encro achment upon the floor the bladder which is most likely related to the patient's enlarged prostate. C linical correlation for hematuria is recommended. : There is no evidence for pelvic mass or adenopathy. There is no evidence for pelvic ascites. Ther e is moderate to marked enlargement of the prostate, encroachment upon the floor the bladder. Vasculature: There is no evidence for aneurysmal dilatation of the abdominal aorta. Marked atheroscle rotic calcification is again seen involving the abdominal aorta. Osseous structures: There is no acute osseous pathology. Degenerative changes are seen within the lum bar spine. IMPRESSION: 1. No acute intra-abdominal or pelvic abnormality. 2. Chronic changes are present as delineated above. ACT 112: Negative or not required by law. Electronically signed by: Choe Garcia M.D. 12/02/2021 4:51 PM
--- NOTE | 2021-12-02 18:11 | History & Physical Report ---
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 Denies hitting head or LOC In ER pt found to be hypotensive 84/50 up to 93/[address] Abd/pelvis: No acute intra-abdominal or pelvic abnormality. Right rib xray: No acute displaced rib fracture or pneumothorax, no acute findings Right forearm, right humerus x-ray: No acute findings CPK: 2488 IVF Incentive spirometer Fall precautions Lidocaine patch, oxycodone prn pain PT/OT eval CBC, BMP in a.m. (5) Chronic respiratory failure with hypoxia: (6) COPD (chronic obstructive pulmonary disease): Plan: In ER reported to be hypoxic and was placed on 4L oxygen via NC with sat 97% Pt is to use 2L oxygen via NC continuously, however refuses to use Noted wheezing on exam. No reported increased cough, sputum production or SOB. Does not appear to be COPD exacerbation Continue 2L oxygen Duonebs Continue home inhalers Continue chronic prednisone (7) CAD (coronary artery disease): (8) PVD (peripheral vascular disease): Plan: History asymptomatic carotid stenosis, occlusion of infra renal abdominal aorta and bilateral common iliac arteries, peripheral PVD. Follows with [facility] vascular, conservative measures recommended Continue aspirin Hold statin with current rhabdomyolysis (9) Dyslipidemia: Plan: Hold statin with rhabdomyolysis (10) Diabetes mellitus, type II: Plan: Hold Metformin NovoLog sliding scale A1c in a.m. (11) Tobacco use: Plan: Denies nicotine patch Does not want to quit (12) Anxiety and depression: Plan: Continue duloxetine (13) Dementia: Plan: Family report patient at baseline mental status DVT Prophylaxis Heparin SQ DNR/DNI as per discussion with pt Follows [facility] for routine care Pt was seen and care coordinated with Dr Vences. 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 Patient states yesterday he was trying to get up out of chair, when chair slid causing patient to hit his right side on the arm of chair and fall. Patient states did not hit his head, did not lose consciousness. He reports he was unable to get up for 5- 6 hours, and struggle to get up. He complains of pain to right side, that is aggravated with movement. Patient reports chronic low back pain, chronic bilateral leg pain. He also reports chronic right forearm pain. He reports his chronic pain is at baseline. He states can only ambulate approximately 20 feet at baseline secondary to extremity pain. Reports in past has used oxycodone for pain with limited relief. Denies headache, neck pain, chest pain. Patient states did not eat or drink yesterday or today. Patient reports chronic wheezing, he feels it is improved from prior secondary to being on a daily inhaler. He no longer reports needing to use nebulizers throughout the day. Reports sometimes will cough however denies any increased cough or sputum production. Denies any increased shortness of breath. Patient is to use 2 L oxygen via nasal cannula continuous, however patient refuses to use at home. Denies fever/chills, diaphoresis, N/V/D/C, ROBBINS, dizziness, syncope, vision changes, neck pain, orthopnea, palpitations, sore throat, choking, otalgia, rhinorrhea, abdominal pa in, paresthesias, extremity edema, rashes, urinary symptoms. Allergies Allergy/AdvReac Type Severity Reaction Status Date / Time cortisone AdvReac Intermediate BODY FEELS Verified 12/02/21 18:00 LIKE IT'S EXPLODING Home Medications Medication Instructions Recorded Confirmed Type prednisone 5 mg tablet 15 mg PO DAILY 04/12/20 12/02/21 History albuterol sulfate 2.5 mg INHALATION Q6H PRN ml 10/15/20 12/02/21 History albuterol sulfate 90 mcg/actuation 2 puff INHALATION Q4H PRN g 10/15/20 12/02/21 History aerosol inhaler (Ventolin HFA) alendronate 70 mg tablet 70 mg PO Q7D tab 10/15/20 12/02/21 History aspirin 81 mg tablet,delayed 81 mg PO DAILY 10/15/20 12/02/21 History release cholecalciferol (vitamin D3) 25 25 mcg PO DAILY 10/15/20 12/02/21 History mcg (1,000 unit) capsule folic acid 1 mg tablet 1 mg PO DAILY 10/15/20 12/02/21 History tiotropium bromide 18 mcg capsule 1 cap INHALATION DAILY 10/15/20 12/02/21 History with inhalation device duloxetine 20 mg capsule,delayed 20 mg PO DAILY 12/02/21 12/02/21 History release finasteride 5 mg tablet 5 mg PO DAILY 12/02/21 12/02/21 History fluticasone 500 mcg-salmeterol 50 1 inh INHALATION BID 12/02/21 12/02/21 History mcg/dose blistr powdr for inhalation (Advair Diskus) metformin 500 mg tablet 500 mg PO BID 12/02/21 12/02/21 History nystatin 100,000 unit/mL oral 1 ml PO QID 12/02/21 12/02/21 History suspension rosuvastatin 10 mg tablet 10 mg PO DAILY 12/02/21 12/02/21 History tamsulosin 0.4 mg capsule 0.4 mg PO DAILY 12/02/21 12/02/21 History Past Med/Surg History Medical History Anxiety and depression CAD (coronary artery disease) Chronic respiratory failure with hypoxia COPD (chronic obstructive pulmonary disease) Dementia Diabetes mellitus, type II Dyslipidemia PVD (peripheral vascular disease) Spinal stenosis Tobacco use Surgical History (Updated 12/02/21 @ 19:28 by Calista Portillo PA-C) No significant past surgical history Family History (Updated 12/02/21 @ 19:28 by Calista Portillo PA-C) Other COPD (chronic obstructive pulmonary disease) Social History (Updated 12/02/21 @ 19:29 by Calista Portillo PA-C) Smoking Status: Current every day smoker Hx Alcohol Use: No Hx Substance Use: No Feels Safe at Home: Yes Review of Systems Review of Systems: All systems reviewed & are unremarkable except as noted in HPI & below Physical Exam 2 Physical Exam: General: chronic ill appearing, thin elderly male, no acute distress Head: normocephalic, atraumatic Eyes: PERRL, EOM's intact, conjunctiva non-injected, anicteric ENT: normal inspection external ears, nose, mucous membranes dry Neck: supple, trachea midline, non-tender, ROM intact Lungs: 92% on 2L via NC, no respiratory distress, +wheezing throughout Chest: +tenderness to palpation right lower lateral ribs, no crepitus no ecchymosis CV: RRR, no murmur, no JVD, no pretibial edema Abd: normal BS, soft, non-tender Ext: no cyanosis, no erythema, no calf tenderness Neuro: A&O x 3, no focal deficits noted, normal affect Skin: warm, dry Results & Data Results & Data ([facility]) Vital Signs (Past 12 Hours) Vital Signs Temp Pulse Pulse Resp BP BP Pulse Ox 12/02/21 15:45 82 12 97 12/02/21 15:31 80 14 93/67 L 100 12/02/21 15:30 79 19 12/02/21 15:15 75 13 12/02/21 15:00 79 19 91/65 L 100 12/02/21 14:48 79 21 100 12/02/21 14:35 78 18 94/58 L 100 12/02/21 13:51 101/55 L 12/02/21 12:38 37.5 C 81 18 84/50 L 97 Laboratory Results Short CBC 12/02/21 Range/Units 13:48 WBC 9.99 (4.8-10.8) K/uL Hgb 14.4 (14.0-18.0) g/dL Hct 43.1 (42-52) % Plt Count 287 (130-400) K/uL BMP 12/02/21 13:48 Sodium 135 L Potassium 4.0 Chloride 99 Carbon Dioxide 28 BUN 25 H Creatinine 0.66 Glucose 84 Calcium 9.0 Cardiac Enzymes 12/02/21 Range/Units 13:48 Total Creatine Kinase 2488 H (30-223) U/L Liver Function 12/02/21 Range/Units 13:48 Total Bilirubin 1.1 H (0.2-1.0) mg/dl AST 58 H (13-39) U/L ALT 20 (7-52) U/L Alkaline Phosphatase 69 (34-104) U/L Albumin 3.8 (3.4-5.0) gm/dl Diagnostic Findings Ribs w/Chest X-Ray 12/02/21 13:01 XR ribs RT min 2V w CXR1V HISTORY: 81 years-old Male r rib pain acute right-sided rib pain COMPARISON: Chest radiograph 05/02/2017 TECHNIQUE: AP view of the chest with 4 views of the right ribs FINDINGS: Scattered bilateral calcifications redemonstrated. The cardiomediastinal and hilar silhouettes are unchanged. No pneumothorax, pleural effusion, airspace consolidation or overt pulmonary edema. Rotator cuff calcific tendinosis of the right shoulder. No acute displaced rib fracture. IMPRESSION: 1. No acute processes of the chest. 2. No acute displaced rib fracture or pneumothorax. ACT 112: Negative or not required by law. The above report was generated using voice recognition software. It may contain grammatical, syntax or spelling errors. Electronically signed by: Bijan Bauer M.D. 12/02/2021 1:48 PM Abdomen/Pelvis CT 12/02/21 15:06 CT abd pelvis IV con only CLINICAL HISTORY: trauma, right flank pain COMPARISON STUDY: 01/04/2015 CT DOSE: 254.96 mGy.cm TECHNIQUE: Standard CT of the Abdomen and Pelvis was performed with IV contrast. A dose lowering technique was utilized adhering to the principles of ALARA. Contrast Volume: Optiray 320, 94 ml. The patient did not receive oral contrast. FINDINGS: Lung base: The lung bases are clear. Abdominal cavity: There is no evidence for abdominal mass, adenopathy or ascites. Liver: There is homogeneous attenuation of the liver parenchyma. There is no evidence for enhancing mass lesion. Spleen: There is homogeneous attenuation of the splenic parenchyma. There is no enhancing mass lesion. Pancreas: There is homogeneous attenuation of the pancreatic parenchyma. There is no evidence for mass lesion or peripancreatic fluid collection. Gall Bladder: The gallbladder is well distended with no evidence for intraluminal calculi, wall thickening or pericholecystic edema. Adrenal glands: The adrenal glands are normal in size and attenuation. There is no evidence for enhancing mass lesion. Kidneys: There is homogeneous attenuation of the renal parenchyma bilaterally. There is no evidence for renal calculus or hydronephrosis. There is no evidence for enhancing mass. Bowel: The bowel loops are normally placed within the abdomen and pelvis without evidence for dilatation or obstruction. There is no evidence for mass lesion. There is mild fecal stasis without impaction or obstruction. There are no inflammatory changes present. There is no evidence for free air. The appendix is not visualized. Bladder: Bladder is distended with diffuse thickening of bladder wall. This also very prominent encroachment upon the floor the bladder which is most likely related to the patient's enlarged prostate. Clinical correlation for hematuria is recommended. : There is no evidence for pelvic mass or adenopathy. There is no evidence for pelvic ascites. There is moderate to marked enlargement of the prostate, encroachment upon the floor the bladder. Vasculature: There is no evidence for aneurysmal dilatation of the abdominal aorta. Marked atherosclerotic calcification is again seen involving the abdominal aorta. Osseous structures: There is no acute osseous pathology. Degenerative changes are seen within the lumbar spine. IMPRESSION: 1. No acute intra-abdominal or pelvic abnormality. 2. Chronic changes are present as delineated above. ACT 112: Negative or not required by law. Electronically signed by: Cheo Garcia M.D. 12/02/2021 4:51 PM Forearm X-Ray 12/02/21 15:07 XR forearm RT 2V CLINICAL HISTORY: Right arm numbness and pain. COMPARISON STUDY: No previous studies for comparison. TECHNIQUE: AP and lateral right forearm views FINDINGS: Bones: There is no evidence for an acute fracture or dislocation. There is no lytic or blastic lesion. Joints: The joint spaces are maintained. The bones are in anatomic alignment. Soft tissues: There is no focal soft tissue abnormality. There is soft tissue calcification seen at the insertion of the triceps tendon characteristic of mild chronic insertional tendinopathy. There is no radiopaque foreign body. IMPRESSION: 1. No acute osseous pathology. 2. 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 ACT 112: Negative or not required by law. Electronically signed by: Cheo Garcia M.D. 12/02/2021 3:58 PM Humerus X-Ray 12/02/21 15:07 XR humerus RT 2V CLINICAL HISTORY: pain, trauma TECHNIQUE: 2 radiographic views of the right humerus were obtained. Comparison: None available at the time of this dictation. FINDINGS: There is no evidence for fracture, subluxation or dislocation. There is normal anatomic alignment of the bones. The visualized portion of the shoulder and elbow joints are unremarkable. There is normal bone mineralization. The soft tissues are unremarkable. IMPRESSION: No acute osseous injury ACT 112: Negative or not required by law. Electronically signed by: Asad Ramirez M.D. 12/02/2021 3:46 PM Supervising Physician Co-Signing Physician Notes Is a 81-year-old male with history of peripheral artery disease, coronary artery disease, COPD, dementia and other medical problems presents with history of fall yesterday. Patient was unable to get out of chair and slid onto the floor and hit on the right side of his arm during the fall. He was unable to get up from the floor for about 5 to 6 hours. He states having generalized weakness and has ambulatory dysfunction currently. He reports chronic lower back pain, bilateral neck pain. Please review HPI for complete details of presentation. Patient was to use 2 L of supplemental oxygen for COPD which currently is not using as advised. Blood work suggestive sodium 135, AST 58, CK 2488. Imaging studies showed no acute fractures. On exam patient is chronically ill-appearing, no apparent distress, normocephalic atraumatic, EOMI, decreased breath sounds, bilateral wheezing, chest tenderness on right side with palpation, S1-S2, no murmur, no pedal edema, abdomen soft, nontender, normal bowel sounds, alert, awake, oriented, grossly no focal deficits. Patient is admitted secondary to fall, ambulatory dysfunction resulting in rhabdomyolysis, dehydration. Agree with holding statin, will give IV fluids. Trend CK levels. Imaging studies showed no acute fractures. PT OT, fall precautions. Pain control. Will place on scheduled nebs given wheezing on exam, will need 2 step prior to discharge. Consult to quit tobacco use. I personally reviewed the record. Patient is interviewed and examined at bedside. Patient's care is coordinated with Calista Portillo PA-C. Please refer to the documentation above for details of patient's presentation and for discussion of other issues. (1) Fall Encounter type: initial encounter Qualified Code(s): W19.XXXA - Unspecified fall, initial encounter
[2021-12-02] MEDS: LACTATED RINGER'S 1,000 ML IV SCH ×2 (18:13→22:26)
[2021-12-02] MEDS ORDERED: HYDROmorphone INJ 0.5 MG/0.5 ML SYR IV STA (19:32)
[2021-12-02] MEDS ORDERED: KETOROLAC TROMETHAMINE 15 MG/ML VIAL ONE (20:12)
[2021-12-02] MEDS ORDERED: GLUCOSE 10 TABS/TUBE PO PRN (21:32)
[2021-12-02] MEDS ORDERED: DEXTROSE 50% 50 ML SYRINGE IV PRN (21:32)
[2021-12-02] MEDS ORDERED: CARBOHYDRATES FOR HYPOGLYCEMIA PO PRN (21:32)
[2021-12-02] MEDS ORDERED: GLUCOSE 40% GEL 15 GM TUBE PO PRN (21:32)
[2021-12-02] MEDS ORDERED: GLUCAGON FOR INJ 1 MG VIAL SQ PRN (21:32)
[2021-12-02] MEDS ORDERED: KETOROLAC TROMETHAMINE 15 MG/ML VIAL IV ONE (21:32)
[2021-12-02] MEDS ORDERED: POLYETHYLENE (MIRALAX) 17 GM PACK PO PRN (21:32)
[2021-12-02] MEDS: HEPARIN SOD 5,000 UNIT/0.5 ML VIAL SQ SCH (23:34)
[2021-12-02] MEDS: INSULIN ASPART PER UNIT SC SCH (23:34)
[2021-12-02] MEDS: LIDOCAINE 5% 1 PATCH TD SCH (23:35)
[2021-12-02] MEDS: SODIUM CHLORIDE 0.9% 1000ML 1,000 ML IV SCH (23:51)
[2021-12-03 02:20] LABS: Appearance Urine Clear (Clear); Bacteria Urine Automated 4+ (Negative); Bilirubin Urine Negative (Negative); Blood Urine Trace (Negative); Cast Urine Automated 0 /lpf (0-5); Color Urine Yellow; Epithelial Cell Urine Auto 0-5 /lpf (0-5); Glucose Urine UA Negative (Negative); Ketones Urine 3+ (Negative); Leukocyte Esterase Urine 2+ (Negative); Nitrite Urine Negative (Negative); Protein Urine Negative (Negative); RBC Urine Automated 0-4 /hpf (0-4); Specific Gravity Urine > 1.045 (1.000-1.030); Urobilinogen Urine Negative (Negative); WBC Urine Automated >30 /hpf (0-5); pH Urine 5.5 (4.5-7.5)
[2021-12-03] MEDS: oxyCODONE HCL IR 5 MG TAB (IMMEDIATE RELEASE) PO PRN ×3 (02:27→20:45)
[2021-12-03] MEDS: SODIUM CHLORIDE 0.9% 1000ML 1,000 ML IV SCH (06:30)
[2021-12-03 07:01] LABS: Hematocrit (blood only) 38.5 % (42-52); Hemoglobin 13.1 g/dL (14.0-18.0); Mean Corpuscular Hemoglobin 32.8 pg (25-34); Mean Corpuscular Volume 96.3 fL (80-100); Mean Platelet Volume 10.9 fL (7.4-10.4); Platelet Count 269 K/uL (130-400); RDW Coefficient of Variation 14.3 % (11.5-14.5)
[2021-12-03] MEDS: ALBUT/IPRATROP 3MG/0.5MG NEB 3 ML VIAL NEB SCH ×3 (07:04→17:24)
[2021-12-03 07:24] LABS: BUN Creatinine Ratio 28.8 (10-20); Creatinine Clr Calc Pharmacy 97.8 ml/min; Est GFR (African American) 117.6 ml/min; Est GFR (Non-African American) 101.4 ml/min; Potassium 3.8 mmol/L (3.5-5.1)
[2021-12-03 07:47] LABS: Estimated Average Glucose 137 mg/dl; Hemoglobin A1C 6.4 % (4.5-5.6)
[2021-12-03] MEDS: INSULIN ASPART PER UNIT SC SCH ×4 (09:15→20:42)
[2021-12-03] MEDS: ACETAMINOPHEN 325 MG TAB PO PRN ×2 (09:21→20:45)
[2021-12-03] MEDS: TAMSULOSIN HCL 0.4 MG CAP PO SCH (09:22)
[2021-12-03] MEDS: FOLIC ACID 1 MG TAB PO SCH (09:22)
[2021-12-03] MEDS: ASPIRIN 81 MG ECTAB PO SCH (09:22)
[2021-12-03] MEDS: FINASTERIDE 5 MG TAB PO SCH (09:22)
[2021-12-03] MEDS: DULoxetine HCL 20 MG CAP PO SCH (09:22)
[2021-12-03] MEDS: CHOLECALCIFEROL 1,000 UNITS 25 MCG TAB PO SCH (09:23)
[2021-12-03] MEDS: predniSONE 5 MG TAB PO SCH (09:23)
[2021-12-03] MEDS: HEPARIN SOD 5,000 UNIT/0.5 ML VIAL SQ SCH ×2 (09:31→20:43)
[2021-12-03] MEDS: FLUTICASONE/VILANTEROL 200/25MCG 14 PUFFS/INHALER INH SCH (12:21)
--- NOTE | 2021-12-03 13:58 | Electrocardiogram Report ---
Test Reason : Blood Pressure : / mmHG Vent. Rate : 074 BPM Atrial Rate : 441 BPM P-R Int : 000 ms QRS Dur : 068 ms QT Int : 402 ms P-R-T Axes : 000 084 084 degrees QTc Int : 446 ms Poor data quality, interpretation may be adversely affected Sinus rhythm with occasional Premature atrial complexes Abnormal ECG When compared with ECG of 02-MAY-2017 10:23, ARTIFACT now present Otherwise no significant change Confirmed by Mark Espino ([id number]) on 12/03/2021 1:58:17 PM Referred By: REFERRED SELF Confirmed By:Mark Espino
[2021-12-03] MEDS ORDERED: guaiFENesin/DEXTROM SYRUP 200MG/20MG 10ML UDC PO PRN (14:41)
[2021-12-03] MEDS ORDERED: ALBUT/IPRATROP 3MG/0.5MG NEB 3 ML VIAL NEB PRN (15:02)
--- NOTE | 2021-12-03 16:19 | Hospitalist Progress Note ---
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 Denies hitting head or LOC (4) Dehydration: Plan: In ER pt found to be hypotensive 84/50 up to 93/67 after 500ml NSS (5) Chronic respiratory failure with hypoxia: Plan: As below (6) COPD (chronic obstructive pulmonary disease): Plan: In ER reported to be hypoxic and was placed on 4L oxygen via NC with sat 97% Pt is to use 2L oxygen via NC continuously, however refuses to use Noted wheezing on exam. No reported increased cough, sputum production or SOB. Does not appear to be COPD exacerbation Continue 2L oxygen Duonebs Continue home inhalers Continue chronic prednisone (7) CAD (coronary artery disease): Plan: Denies any chest pain and or palpitation (8) PVD (peripheral vascular disease): Plan: History asymptomatic carotid stenosis, occlusion of infra renal abdominal aorta and bilateral common iliac arteries, peripheral PVD. Follows with [facility] vascular, conservative measures recommended Continue aspirin Hold statin with current rhabdomyolysis (9) Dyslipidemia: Plan: Hold statin with rhabdomyolysis (10) Diabetes mellitus, type II: Plan: Hold Metformin NovoLog sliding scale A1c in a.m. (11) Tobacco use: Plan: Denies nicotine patch Does not want to quit (12) Anxiety and depression: Plan: Continue duloxetine (13) Dementia: Plan: Family report patient at baseline mental status DVT Prophylaxis Heparin SQ DNR/DNI as per discussion with pt Follows with [facility] for routine care (14) Spinal stenosis: Admission and Anticipated Discharge Date Admission Date: December 02, 2021 Subjective December 03, 2021 The patient was seen and examined in medical telemetry unit He has been complaining of severe pain involving the right lower chest and right groin He complains some shortness of breath as well Review of Systems Review of Systems: All systems reviewed and are unremarkable except as noted below Respiratory: Mild shortness of breath at rest with chest pain Physical Exam Physical Exam: Lying in bed with acute distress due to pain and shortness of breath Constitutional: + ill appearing and + thin Eyes: PERRL, conjunctivae normal, anicteric sclerae ENMT: external ear and nose normal, oropharynx normal Neck: trachea midline, no thyromegaly Respiratory: + respiratory distress (Mild to moderate shortness of breath) Auscultation: + crackles (Coarse crackles bibasilarly more on the right side) Cardiovascular: Rate/Rhythm: regular rate and regular rhythm; not tachycardic Heart Sounds: normal S1 and normal S2; no murmur Extremities: no edema Gastrointestinal (Abdomen): Inspection/Auscultation: normal bowel sounds; abdomen not distended Percussion/Palpation: abdomen soft; abdomen nontender Musculoskeletal: No acute arthritis in any joint Neurologic: Alert, awake and oriented x3 Results & Data Results & Data ([facility]) Vital Signs (Past 12 Hours) Vital Signs Temp Pulse Pulse Pulse Resp BP Pulse Ox 12/03/21 15:05 78 12/03/21 12:00 36.8 C 79 18 120/72 91 12/03/21 10:39 72 20 93 12/03/21 08:00 79 12/03/21 07:17 36.7 C 83 18 131/75 90 12/03/21 07:04 72 20 89 L Laboratory Results Short CBC 12/03/21 Range/Units 06:37 WBC 8.90 (4.8-10.8) K/uL Hgb 13.1 L (14.0-18.0) g/dL Hct 38.5 L (42-52) % Plt Count 269 (130-400) K/uL BMP 12/03/21 06:37 Sodium 134 L Potassium 3.8 Chloride 105 Carbon Dioxide 21 BUN 15 Creatinine 0.52 L Glucose 67 L Calcium 8.0 L Cardiac Enzymes 12/03/21 Range/Units 06:37 Total Creatine Kinase 1430 H (30-223) U/L Urine 12/03/21 Range/Units 02:00 Urine Color Yellow Urine Appearance Clear (Clear) Urine pH 5.5 (4.5-7.5) Ur Specific [place] > 1.045 H (1.000-1.030) Urine Protein Negative (Negative) Urine Glucose (UA) Negative (Negative) Medications Administered Current Inpatient Medications Acetaminophen (Acetaminophen 325 Mg Tab) 650 mg PO Q4H PRN PRN Reason: Pain or Fever Stop: 01/01/22 21:31 Last Admin: 12/03/21 09:21 Dose: 650 mg Documented by: Albuterol (Albut/Ipratrop 3mg/0.5mg Neb 3 Ml Vial) 3 ml NEB QIDR PRN; Protocol PRN Reason: Shortness Of Breath Or Wheezing Stop: 01/02/22 06:59 Aspirin (Aspirin 81 Mg Ectab) 81 mg PO DAILY REECE Stop: 01/02/22 08:59 Last Admin: 12/03/21 09:22 Dose: 81 mg Documented by: Dextrose (Dextrose 50% 50 Ml Syringe) 25 - 50 ml IV UD PRN; Protocol PRN Reason: Hypoglycemia Protocol Stop: 01/01/22 21:31 Diclofenac Sodium (Diclofenac Sod 1% Gel 100 Gm Tube) 2 gm EXT BID REECE Stop: 01/02/22 20:59 Duloxetine HCl (Duloxetine Hcl 20 Mg Cap) 20 mg PO DAILY REECE Stop: 01/02/22 08:59 Last Admin: 12/03/21 09:22 Dose: 20 mg Documented by: Finasteride (Finasteride 5 Mg Tab) 5 mg PO DAILY REECE Stop: 01/02/22 08:59 Last Admin: 12/03/21 09:22 Dose: 5 mg Documented by: Fluticasone/Vilanterol (Fluticasone/Vilanterol 200/25mcg 14 Puffs/Inhaler) 1 puffs INH DAILY REECE Stop: 01/02/22 08:59 Last Admin: 12/03/21 12:21 Dose: 1 puffs Documented by: Folic Acid (Folic Acid 1 Mg Tab) 1 mg PO DAILY REECE Stop: 01/02/22 08:59 Last Admin: 12/03/21 09:22 Dose: 1 mg Documented by: Glucagon (Glucagon For Inj 1 Mg Vial) 1 mg SQ UD PRN; Protocol PRN Reason: Hypoglycemia Protocol Stop: 01/01/22 21:31 Glucose (Glucose 10 Tabs/Tube) 4 - 8 tabs PO UD PRN; Protocol PRN Reason: Hypoglycemia Protocol Stop: 01/01/22 21:31 Glucose (Glucose 40% Gel 15 Gm Tube) 15 - 30 gm PO UD PRN; Protocol PRN Reason: Hypoglycemia Protocol Stop: 01/01/22 21:31 Guaifenesin/Dextromethorphan (Guaifenesin/Dextrom Syrup 200mg/20mg 10ml Udc) 10 ml PO Q6H PRN PRN Reason: Cough Stop: 01/02/22 14:40 Heparin Sodium (Porcine) (Heparin Sod 5,000 Unit/0.5 Ml Vial) 5,000 units SQ Q12 REECE Stop: 01/01/22 21:31 Last Admin: 12/03/21 09:31 Dose: 5,000 units Documented by: Insulin Aspart (Insulin Aspart Per Unit) 0 units SC ACHS REECE Stop: 01/01/22 21:31 Last Admin: 12/03/21 12:21 Dose: Not Given Documented by: Lidocaine (Lidocaine 5% 1 Patch) 1 patch TD HS REECE Stop: 01/01/22 21:31 Last Admin: 12/02/21 23:35 Dose: 1 patch Documented by: Miscellaneous (Remove Lidoderm Patch) 1 ea N/A QAM REECE Stop: 01/02/22 08:59 Last Admin: 12/03/21 09:31 Dose: 1 ea Documented by: Miscellaneous (Carbohydrates For Hypoglycemia ) 15 - 30 gm PO UD PRN PRN Reason: Hypoglycemia Protocol Stop: 01/01/22 21:31 Oxycodone HCl (Oxycodone Hcl Ir 5 Mg Tab (Immediate Release)) 5 mg PO Q4H PRN PRN Reason: Moderate Pain Stop: 12/16/21 21:31 Polyethylene Glycol (Polyethylene (Miralax) 17 Gm Pack) 17 gm PO DAILY PRN PRN Reason: Constipation Stop: 01/01/22 21:31 Prednisone (Prednisone 5 Mg Tab) 15 mg PO DAILY REECE Stop: 01/02/22 08:59 Last Admin: 12/03/21 09:23 Dose: 15 mg Documented by: Tamsulosin HCl (Tamsulosin Hcl 0.4 Mg Cap) 0.4 mg PO DAILY REECE Stop: 01/02/22 08:59 Last Admin: 12/03/21 09:22 Dose: 0.4 mg Documented by: Vitamin D (Cholecalciferol 1,000 Units 25 Mcg Tab) 1,000 units PO DAILY REECE Stop: 01/02/22 08:59 Last Admin: 12/03/21 09:23 Dose: 1,000 units Documented by: (1) Fall Encounter type: initial encounter Qualified Code(s): W19.XXXA - Unspecified fall, initial encounter
[2021-12-03] MEDS: LIDOCAINE 5% 1 PATCH TD SCH (20:41)
[2021-12-03] MEDS: DICLOFENAC SOD 1% GEL 100 GM TUBE EXT SCH (20:41)
[2021-12-04] MEDS: oxyCODONE HCL IR 5 MG TAB (IMMEDIATE RELEASE) PO PRN ×4 (01:38→20:55)
[2021-12-04] MEDS: ACETAMINOPHEN 325 MG TAB PO PRN (01:38)
[2021-12-04 07:21] LABS: Basophils # (auto) 0.02 K/uL (0-0.2); Basophils % (auto) 0.2 %; Eosinophils # (auto) 0.11 K/uL (0-0.5); Eosinophils % (auto) 1.2 %; Hematocrit (blood only) 38.4 % (42-52); Hemoglobin 13.1 g/dL (14.0-18.0); Immature Granulocytes # (auto) 0.02 K/uL (0.00-0.02); Immature Granulocytes % (auto) 0.2 %; Lymphocytes # (auto) 1.23 K/uL (1.2-3.4); Lymphocytes % (auto) 13.2 %; Mean Corpuscular Hemoglobin 32.8 pg (25-34); Mean Corpuscular Hgb Conc 34.1 g/dL (32-36); Monocytes # (auto) 0.79 K/uL (0.11-0.59); Monocytes % (auto) 8.5 %; Neutrophils # (auto) 7.15 K/uL (1.4-6.5); Neutrophils % (auto) 76.7 %; Platelet Count 268 K/uL (130-400); RDW Coefficient of Variation 13.9 % (11.5-14.5); RDW Standard Deviation 49.5 fL (36.4-46.3); White Blood Count 9.32 K/uL (4.8-10.8)
[2021-12-04 07:46] LABS: BUN Creatinine Ratio 26.4 (10-20); Creatinine Clr Calc Pharmacy 94.6 ml/min; Est GFR (African American) 116.6 ml/min; Est GFR (Non-African American) 100.6 ml/min; Potassium 3.7 mmol/L (3.5-5.1)
[2021-12-04] MEDS: DULoxetine HCL 20 MG CAP PO SCH (07:59)
[2021-12-04] MEDS: CHOLECALCIFEROL 1,000 UNITS 25 MCG TAB PO SCH (07:59)
[2021-12-04] MEDS: ASPIRIN 81 MG ECTAB PO SCH (08:00)
[2021-12-04] MEDS: TAMSULOSIN HCL 0.4 MG CAP PO SCH (08:00)
[2021-12-04] MEDS: FINASTERIDE 5 MG TAB PO SCH (08:00)
[2021-12-04] MEDS: FOLIC ACID 1 MG TAB PO SCH (08:00)
[2021-12-04] MEDS: FLUTICASONE/VILANTEROL 200/25MCG 14 PUFFS/INHALER INH SCH (08:01)
[2021-12-04] MEDS: DICLOFENAC SOD 1% GEL 100 GM TUBE EXT SCH ×2 (08:01→20:43)
[2021-12-04] MEDS: predniSONE 5 MG TAB PO SCH (08:01)
[2021-12-04] MEDS: HEPARIN SOD 5,000 UNIT/0.5 ML VIAL SQ SCH ×2 (08:06→20:57)
[2021-12-04] MEDS: INSULIN ASPART PER UNIT SC SCH ×4 (09:50→21:34)
[2021-12-04] MEDS: MoRPHine SULFATE 2 MG/ML CARP IV PRN (10:02)
--- NOTE | 2021-12-04 18:12 | Hospitalist Progress Note ---
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 Denies hitting head or LOC PT OT evaluation and possible placement (4) Dehydration: Plan: In ER pt found to be hypotensive 84/50 up to 93/67 after 500ml NSS (5) Chronic respiratory failure with hypoxia: Plan: As below (6) COPD (chronic obstructive pulmonary disease): Plan: In ER reported to be hypoxic and was placed on 4L oxygen via NC with sat 97% Pt is to use 2L oxygen via NC continuously, however refuses to use Noted wheezing on exam. No reported increased cough, sputum production or SOB. Does not appear to be COPD exacerbation Continue 2L oxygen Duonebs Continue home inhalers Continue chronic prednisone (7) CAD (coronary artery disease): Plan: Denies any chest pain and or palpitation (8) PVD (peripheral vascular disease): Plan: History asymptomatic carotid stenosis, occlusion of infra renal abdominal aorta and bilateral common iliac arteries, peripheral PVD. Follows with [facility] vascular, conservative measures recommended Continue aspirin Hold statin with current rhabdomyolysis (9) Dyslipidemia: Plan: Hold statin with rhabdomyolysis (10) Diabetes mellitus, type II: Plan: Hold Metformin NovoLog sliding scale A1c in a.m. (11) Tobacco use: Plan: Denies nicotine patch Does not want to quit (12) Anxiety and depression: Plan: Continue duloxetine (13) Dementia: Plan: Family report patient at baseline mental status DVT Prophylaxis Heparin SQ DNR/DNI as per discussion with pt Follows with [facility] for routine care (14) Spinal stenosis: Admission and Anticipated Discharge Date Admission Date: December 02, 2021 Subjective December 03, 2021 The patient was seen and examined in medical telemetry unit He has been complaining of severe pain involving the right lower chest and right groin He complains some shortness of breath as well 12/04/2021 Patient was seen and examined in medical telemetry unit in presence of the daughter He has been feeling much better and the pain seems to be reasonably controlled Review of Systems Review of Systems: All systems reviewed and are unremarkable except as noted below Respiratory: Mild shortness of breath at rest with chest pain Physical Exam Physical Exam: Lying in bed with acute distress due to pain and shortness of breath Constitutional: + ill appearing and + thin Eyes: PERRL, conjunctivae normal, anicteric sclerae ENMT: external ear and nose normal, oropharynx normal Neck: trachea midline, no thyromegaly Respiratory: + respiratory distress (Mild to moderate shortness of breath) Auscultation: + crackles (Coarse crackles bibasilarly more on the right side) Cardiovascular: Rate/Rhythm: regular rate and regular rhythm; not tachycardic Heart Sounds: normal S1 and normal S2; no murmur Extremities: no edema Gastrointestinal (Abdomen): Inspection/Auscultation: normal bowel sounds; abdomen not distended Percussion/Palpation: abdomen soft; abdomen nontender Neurologic: Alert, awake and oriented x3 Results & Data Results & Data ([facility]) Vital Signs (Past 12 Hours) Vital Signs Temp Pulse Pulse Resp BP Pulse Ox 12/04/21 15:08 86 12/04/21 14:08 36.7 C 87 19 112/67 96 12/04/21 11:12 36.6 C 83 19 107/66 92 12/04/21 08:26 36.8 C 83 19 145/76 H 95 12/04/21 07:00 80 Laboratory Results Short CBC 12/04/21 Range/Units 06:39 WBC 9.32 (4.8-10.8) K/uL Hgb 13.1 L (14.0-18.0) g/dL Hct 38.4 L (42-52) % Plt Count 268 (130-400) K/uL BMP 12/04/21 06:39 Sodium 131 L Potassium 3.7 Chloride 100 Carbon Dioxide 24 BUN 14 Creatinine 0.53 L Glucose 136 H Calcium 8.0 L Medications Administered Current Inpatient Medications Acetaminophen (Acetaminophen 325 Mg Tab) 650 mg PO Q4H PRN PRN Reason: Pain or Fever Stop: 01/01/22 21:31 Last Admin: 12/04/21 01:38 Dose: 650 mg Documented by: Albuterol (Albut/Ipratrop 3mg/0.5mg Neb 3 Ml Vial) 3 ml NEB QIDR PRN; Protocol PRN Reason: Shortness Of Breath Or Wheezing Stop: 01/02/22 06:59 Aspirin (Aspirin 81 Mg Ectab) 81 mg PO DAILY REECE Stop: 01/02/22 08:59 Last Admin: 12/04/21 08:00 Dose: 81 mg Documented by: Dextrose (Dextrose 50% 50 Ml Syringe) 25 - 50 ml IV UD PRN; Protocol PRN Reason: Hypoglycemia Protocol Stop: 01/01/22 21:31 Diclofenac Sodium (Diclofenac Sod 1% Gel 100 Gm Tube) 2 gm EXT BID REECE Stop: 01/02/22 20:59 Last Admin: 12/04/21 08:01 Dose: 2 gm Documented by: Duloxetine HCl (Duloxetine Hcl 20 Mg Cap) 20 mg PO DAILY REECE Stop: 01/02/22 08:59 Last Admin: 12/04/21 07:59 Dose: 20 mg Documented by: Finasteride (Finasteride 5 Mg Tab) 5 mg PO DAILY REECE Stop: 01/02/22 08:59 Last Admin: 12/04/21 08:00 Dose: 5 mg Documented by: Fluticasone/Vilanterol (Fluticasone/Vilanterol 200/25mcg 14 Puffs/Inhaler) 1 puffs INH DAILY REECE Stop: 01/02/22 08:59 Last Admin: 12/04/21 08:01 Dose: 1 puffs Documented by: Folic Acid (Folic Acid 1 Mg Tab) 1 mg PO DAILY REECE Stop: 01/02/22 08:59 Last Admin: 12/04/21 08:00 Dose: 1 mg Documented by: Glucagon (Glucagon For Inj 1 Mg Vial) 1 mg SQ UD PRN; Protocol PRN Reason: Hypoglycemia Protocol Stop: 01/01/22 21:31 Glucose (Glucose 10 Tabs/Tube) 4 - 8 tabs PO UD PRN; Protocol PRN Reason: Hypoglycemia Protocol Stop: 01/01/22 21:31 Glucose (Glucose 40% Gel 15 Gm Tube) 15 - 30 gm PO UD PRN; Protocol PRN Reason: Hypoglycemia Protocol Stop: 01/01/22 21:31 Guaifenesin/Dextromethorphan (Guaifenesin/Dextrom Syrup 200mg/20mg 10ml Udc) 10 ml PO Q6H PRN PRN Reason: Cough Stop: 01/02/22 14:40 Heparin Sodium (Porcine) (Heparin Sod 5,000 Unit/0.5 Ml Vial) 5,000 units SQ Q12 REECE Stop: 01/01/22 21:31 Last Admin: 12/04/21 08:06 Dose: 5,000 units Documented by: Insulin Aspart (Insulin Aspart Per Unit) 0 units SC ACHS REECE Stop: 01/01/22 21:31 Last Admin: 12/04/21 11:35 Dose: Not Given Documented by: Lidocaine (Lidocaine 5% 1 Patch) 1 patch TD HS [facility] Stop: 01/01/22 21:31 Last Admin: 12/03/21 20:41 Dose: 1 patch Documented by: Miscellaneous (Remove Lidoderm Patch) 1 ea N/A QAM [facility] Stop: 01/02/22 08:59 Last Admin: 12/04/21 08:01 Dose: 1 ea Documented by: Miscellaneous (Carbohydrates For Hypoglycemia ) 15 - 30 gm PO UD PRN PRN Reason: Hypoglycemia Protocol Stop: 01/01/22 21:31 Morphine Sulfate (Morphine Sulfate 2 Mg/Ml Carp) 2 mg IV Q4H PRN PRN Reason: Pain Stop: 12/18/21 08:33 Last Admin: 12/04/21 10:02 Dose: 2 mg Documented by: Oxycodone HCl (Oxycodone Hcl Ir 5 Mg Tab (Immediate Release)) 5 mg PO Q4H PRN PRN Reason: Moderate Pain Stop: 12/16/21 21:31 Last Admin: 12/04/21 17:35 Dose: 5 mg Documented by: Polyethylene Glycol (Polyethylene (Miralax) 17 Gm Pack) 17 gm PO DAILY PRN PRN Reason: Constipation Stop: 01/01/22 21:31 Prednisone (Prednisone 5 Mg Tab) 15 mg PO DAILY [facility] Stop: 01/02/22 08:59 Last Admin: 12/04/21 08:01 Dose: 15 mg Documented by: Tamsulosin HCl (Tamsulosin Hcl 0.4 Mg Cap) 0.4 mg PO DAILY [facility] Stop: 01/02/22 08:59 Last Admin: 12/04/21 08:00 Dose: 0.4 mg Documented by: Vitamin D (Cholecalciferol 1,000 Units 25 Mcg Tab) 1,000 units PO DAILY [facility] Stop: 01/02/22 08:59 Last Admin: 12/04/21 07:59 Dose: 1,000 units Documented by: (1) Fall Encounter type: initial encounter Qualified Code(s): W19.XXXA - Unspecified fall, initial encounter (2) Rhabdomyolysis Encounter type: initial encounter Rhabdomyolysis type: traumatic Qualified Code(s): T79.6XXA - Traumatic ischemia of muscle, initial encounter (3) COPD (chronic obstructive pulmonary disease) COPD type: unspecified COPD Qualified Code(s): J44.9 - Chronic obstructive pulmonary disease, unspecified
[2021-12-04] MEDS: LIDOCAINE 5% 1 PATCH TD SCH (20:44)
[2021-12-05] MEDS: oxyCODONE HCL IR 5 MG TAB (IMMEDIATE RELEASE) PO PRN ×4 (02:26→21:56)
[2021-12-05 06:11] LABS: Hematocrit (blood only) 39.2 % (42-52); Hemoglobin 13.1 g/dL (14.0-18.0); Mean Corpuscular Hemoglobin 31.9 pg (25-34); Mean Corpuscular Hgb Conc 33.4 g/dL (32-36); Mean Corpuscular Volume 95.4 fL (80-100); Mean Platelet Volume 11.1 fL (7.4-10.4); Platelet Count 276 K/uL (130-400); RDW Coefficient of Variation 13.7 % (11.5-14.5); RDW Standard Deviation 48.1 fL (36.4-46.3); Red Blood Count 4.11 M/uL (4.7-6.1); White Blood Count 8.68 K/uL (4.8-10.8)
[2021-12-05] MEDS: FOLIC ACID 1 MG TAB PO SCH (08:46)
[2021-12-05] MEDS: predniSONE 5 MG TAB PO SCH (08:46)
[2021-12-05] MEDS: FINASTERIDE 5 MG TAB PO SCH (08:46)
[2021-12-05] MEDS: ASPIRIN 81 MG ECTAB PO SCH (08:46)
[2021-12-05] MEDS: CHOLECALCIFEROL 1,000 UNITS 25 MCG TAB PO SCH (08:47)
[2021-12-05] MEDS: DULoxetine HCL 20 MG CAP PO SCH (08:47)
[2021-12-05] MEDS: TAMSULOSIN HCL 0.4 MG CAP PO SCH (08:47)
[2021-12-05] MEDS: HEPARIN SOD 5,000 UNIT/0.5 ML VIAL SQ SCH ×2 (08:49→22:00)
[2021-12-05] MEDS: FLUTICASONE/VILANTEROL 200/25MCG 14 PUFFS/INHALER INH SCH (08:50)
[2021-12-05] MEDS: INSULIN ASPART PER UNIT SC SCH ×4 (09:00→21:14)
[2021-12-05] MEDS: DICLOFENAC SOD 1% GEL 100 GM TUBE EXT SCH ×2 (10:01→20:24)
[2021-12-05] MEDS: MoRPHine SULFATE 2 MG/ML CARP IV PRN ×2 (10:03→20:21)
--- NOTE | 2021-12-05 17:41 | Hospitalist Progress Note ---
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 Denies hitting head or LOC PT OT evaluation and possible placement (4) Dehydration: Plan: In ER pt found to be hypotensive 84/50 up to 93/67 after 500ml NSS (5) Chronic respiratory failure with hypoxia: Plan: As below Chronically on 2 L of oxygen to maintain saturation (6) COPD (chronic obstructive pulmonary disease): Plan: In ER reported to be hypoxic and was placed on 4L oxygen via NC with sat 97% Pt is to use 2L oxygen via NC continuously, however refuses to use Noted wheezing on exam. No reported increased cough, sputum production or SOB. Does not appear to be COPD exacerbation Continue 2L oxygen Duonebs Continue home inhalers Continue chronic prednisone (7) CAD (coronary artery disease): Plan: Denies any chest pain and or palpitation (8) PVD (peripheral vascular disease): Plan: History asymptomatic carotid stenosis, occlusion of infra renal abdominal aorta and bilateral common iliac arteries, peripheral PVD. Follows with [facility] scular, conservative measures recommended Continue aspirin Hold statin with current rhabdomyolysis (9) Dyslipidemia: Plan: Hold statin with rhabdomyolysis (10) Diabetes mellitus, type II: Plan: Hold Metformin NovoLog sliding scale A1c in a.m. (11) Tobacco use: Plan: Denies nicotine patch Does not want to quit (12) Anxiety and depression: Plan: Continue duloxetine (13) Dementia: Plan: Family report patient at baseline mental status DVT Prophylaxis Heparin SQ DNR/DNI as per discussion with pt [facility] (14) Spinal stenosis: Admission and Anticipated Discharge Date Admission Date: December 02, 2021 Subjective December 03, 2021 The patient was seen and examined in medical telemetry unit He has been complaining of severe pain involving the right lower chest and right groin He complains some shortness of breath as well 12/04/2021 Patient was seen and examined in medical telemetry unit in presence of the daughter He has been feeling much better and the pain seems to be reasonably controlled 12/05/2021 The patient was seen and examined in medical telemetry unit He has been feeling reasonably better today with minimal pain Has minimal shortness of breath as well Review of Systems Review of Systems: All systems reviewed and are unremarkable except as noted below Respiratory: Mild shortness of breath at rest with chest pain Physical Exam Physical Exam: Lying in bed with acute distress due to pain and shortness of breath Constitutional: + ill appearing and + thin Eyes: PERRL, conjunctivae normal, anicteric sclerae ENMT: external ear and nose normal, oropharynx normal Neck: trachea midline, no thyromegaly Respiratory: + respiratory distress (Mild to moderate shortness of breath) Auscultation: + crackles (Coarse crackles bibasilarly more on the right side) Cardiovascular: Rate/Rhythm: regular rate and regular rhythm; not tachycardic Heart Sounds: normal S1 and normal S2; no murmur Extremities: no edema Gastrointestinal (Abdomen): Inspection/Auscultation: normal bowel sounds; abdomen not distended Percussion/Palpation: abdomen soft; abdomen nontender Musculoskeletal: No acute arthritis in any joint Neurologic: Alert, awake and oriented x3 Results & Data Results & Data ([facility]) Vital Signs (Past 12 Hours) Vital Signs Temp Pulse Pulse Resp BP Pulse Ox 12/05/21 16:22 36.7 C 83 18 128/78 90 12/05/21 14:50 88 12/05/21 11:49 36.8 C 88 18 118/75 91 12/05/21 07:58 36.7 C 77 18 114/70 98 12/05/21 07:33 85 Laboratory Results Short CBC 12/05/21 Range/Units 05:23 WBC 8.68 (4.8-10.8) K/uL Hgb 13.1 L (14.0-18.0) g/dL Hct 39.2 L (42-52) % Plt Count 276 (130-400) K/uL Medications Administered Current Inpatient Medications Acetaminophen (Acetaminophen 325 Mg Tab) 650 mg PO Q4H PRN PRN Reason: Pain or Fever Stop: 01/01/22 21:31 Last Admin: 12/04/21 01:38 Dose: 650 mg Documented by: Albuterol (Albut/Ipratrop 3mg/0.5mg Neb 3 Ml Vial) 3 ml NEB QIDR PRN; Protocol PRN Reason: Shortness Of Breath Or Wheezing Stop: 01/02/22 06:59 Aspirin (Aspirin 81 Mg Ectab) 81 mg PO DAILY REECE Stop: 01/02/22 08:59 Last Admin: 12/05/21 08:46 Dose: 81 mg Documented by: Dextrose (Dextrose 50% 50 Ml Syringe) 25 - 50 ml IV UD PRN; Protocol PRN Reason: Hypoglycemia Protocol Stop: 01/01/22 21:31 Diclofenac Sodium (Diclofenac Sod 1% Gel 100 Gm Tube) 2 gm EXT BID REECE Stop: 01/02/22 20:59 Last Admin: 12/05/21 10:01 Dose: 2 gm Documented by: Duloxetine HCl (Duloxetine Hcl 20 Mg Cap) 20 mg PO DAILY REECE Stop: 01/02/22 08:59 Last Admin: 12/05/21 08:47 Dose: 20 mg Documented by: Finasteride (Finasteride 5 Mg Tab) 5 mg PO DAILY REECE Stop: 01/02/22 08:59 Last Admin: 12/05/21 08:46 Dose: 5 mg Documented by: Fluticasone/Vilanterol (Fluticasone/Vilanterol 200/25mcg 14 Puffs/Inhaler) 1 puffs INH DAILY REECE Stop: 01/02/22 08:59 Last Admin: 12/05/21 08:50 Dose: 1 puffs Documented by: Folic Acid (Folic Acid 1 Mg Tab) 1 mg PO DAILY REECE Stop: 01/02/22 08:59 Last Admin: 12/05/21 08:46 Dose: 1 mg Documented by: Glucagon (Glucagon For Inj 1 Mg Vial) 1 mg SQ UD PRN; Protocol PRN Reason: Hypoglycemia Protocol Stop: 01/01/22 21:31 Glucose (Glucose 10 Tabs/Tube) 4 - 8 tabs PO UD PRN; Protocol PRN Reason: Hypoglycemia Protocol Stop: 01/01/22 21:31 Glucose (Glucose 40% Gel 15 Gm Tube) 15 - 30 gm PO UD PRN; Protocol PRN Reason: Hypoglycemia Protocol Stop: 01/01/22 21:31 Guaifenesin/Dextromethorphan (Guaifenesin/Dextrom Syrup 200mg/20mg 10ml Udc) 10 ml PO Q6H PRN PRN Reason: Cough Stop: 01/02/22 14:40 Heparin Sodium (Porcine) (Heparin Sod 5,000 Unit/0.5 Ml Vial) 5,000 units SQ Q12 REECE Stop: 01/01/22 21:31 Last Admin: 12/05/21 08:49 Dose: 5,000 units Documented by: Insulin Aspart (Insulin Aspart Per Unit) 0 units SC ACHS [facility] Stop: 01/01/22 21:31 Last Admin: 12/05/21 17:14 Dose: Not Given Documented by: Lidocaine (Lidocaine 5% 1 Patch) 1 patch TD HS [facility] Stop: 01/01/22 21:31 Last Admin: 12/04/21 20:44 Dose: 1 patch Documented by: Miscellaneous (Remove Lidoderm Patch) 1 ea N/A QAM [facility] Stop: 01/02/22 08:59 Last Admin: 12/05/21 08:48 Dose: 1 ea Documented by: Miscellaneous (Carbohydrates For Hypoglycemia ) 15 - 30 gm PO UD PRN PRN Reason: Hypoglycemia Protocol Stop: 01/01/22 21:31 Morphine Sulfate (Morphine Sulfate 2 Mg/Ml Carp) 2 mg IV Q4H PRN PRN Reason: Pain Stop: 12/18/21 08:33 Last Admin: 12/05/21 10:03 Dose: 2 mg Documented by: Oxycodone HCl (Oxycodone Hcl Ir 5 Mg Tab (Immediate Release)) 5 mg PO Q4H PRN PRN Reason: Moderate Pain Stop: 12/16/21 21:31 Last Admin: 12/05/21 17:21 Dose: 5 mg Documented by: Polyethylene Glycol (Polyethylene (Miralax) 17 Gm Pack) 17 gm PO DAILY PRN PRN Reason: Constipation Stop: 01/01/22 21:31 Prednisone (Prednisone 5 Mg Tab) 15 mg PO DAILY [facility] Stop: 01/02/22 08:59 Last Admin: 12/05/21 08:46 Dose: 15 mg Documented by: Tamsulosin HCl (Tamsulosin Hcl 0.4 Mg Cap) 0.4 mg PO DAILY [facility] Stop: 01/02/22 08:59 Last Admin: 12/05/21 08:47 Dose: 0.4 mg Documented by: Vitamin D (Cholecalciferol 1,000 Units 25 Mcg Tab) 1,000 units PO DAILY [facility] Stop: 01/02/22 08:59 Last Admin: 12/05/21 08:47 Dose: 1,000 units Documented by: (1) Fall Encounter type: initial encounter Qualified Code(s): W19.XXXA - Unspecified fall, initial encounter (2) Rhabdomyolysis Encounter type: initial encounter Rhabdomyolysis type: traumatic Qualified Code(s): T79.6XXA - Traumatic ischemia of muscle, initial encounter (3) COPD (chronic obstructive pulmonary disease) COPD type: unspecified COPD Qualified Code(s): J44.9 - Chronic obstructive pulmonary disease, unspecified
[2021-12-05] MEDS: LIDOCAINE 5% 1 PATCH TD SCH (20:24)
[2021-12-06] MEDS: INSULIN ASPART PER UNIT SC SCH ×3 (07:35→16:41)
[2021-12-06] MEDS: CHOLECALCIFEROL 1,000 UNITS 25 MCG TAB PO SCH (08:26)
[2021-12-06] MEDS: ASPIRIN 81 MG ECTAB PO SCH (08:26)
[2021-12-06] MEDS: FINASTERIDE 5 MG TAB PO SCH (08:26)
[2021-12-06] MEDS: FOLIC ACID 1 MG TAB PO SCH (08:26)
[2021-12-06] MEDS: DULoxetine HCL 20 MG CAP PO SCH (08:26)
[2021-12-06] MEDS: predniSONE 5 MG TAB PO SCH (08:26)
[2021-12-06] MEDS: oxyCODONE HCL IR 5 MG TAB (IMMEDIATE RELEASE) PO PRN ×2 (08:26→14:59)
[2021-12-06] MEDS: TAMSULOSIN HCL 0.4 MG CAP PO SCH (08:26)
[2021-12-06] MEDS: FLUTICASONE/VILANTEROL 200/25MCG 14 PUFFS/INHALER INH SCH (08:27)
[2021-12-06] MEDS: HEPARIN SOD 5,000 UNIT/0.5 ML VIAL SQ SCH (08:27)
[2021-12-06] MEDS: DICLOFENAC SOD 1% GEL 100 GM TUBE EXT SCH (09:59)
--- NOTE | 2021-12-06 11:13 | Hospitalist Progress Note ---
Date of Service December 06, 2021 Assessment & Plan (1) Fall: Plan: Mechanical fall and was on the floor for many hours Rib pain, probable rib contusion, no fractures identified on skeletal survey Chronic back pain, Chronic extremity pain Incentive spirometer Fall precautions Lidocaine patch, oxycodone prn pain Appreciate PT and OT evaluation with recommendation to rehab to continue physical therapy Pain seems to be reasonably controlled He will be transferred to [facility] this afternoon Mild hyponatremia Will give 1 g of sodium orally now Was advised to take extra salt in diet (2) Rhabdomyolysis: Plan: CPK: 2488 IVF-CK has been normalized Was advised to drink more fluid (3) Ambulatory dysfunction: Plan: Patient is 81-year-old male with PMH PAD, bilateral ICA stenosis, 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 Denies hitting head or LOC PT OT evaluation and possible placement Remains stable and will be transferred (4) Dehydration: Plan: In ER pt found to be hypotensive 84/50 up to 93/67 after 500ml NSS Blood pressure is maintained As advised to drink lipid more fluid (5) Chronic respiratory failure with hypoxia: Plan: As below Chronically on 2 L of oxygen to maintain saturation His COPD and respiratory failure and not any worse (6) COPD (chronic obstructive pulmonary disease): Plan: In ER reported to be hypoxic and was placed on 4L oxygen via NC with sat 97% Pt is to use 2L oxygen via NC continuously, however refuses to use Noted wheezing on exam. No reported increased cough, sputum production or SOB. Does not appear to be COPD exacerbation Continue 2L oxygen Duonebs Continue home inhalers Continue chronic prednisone (7) CAD (coronary artery disease): Plan: Denies any chest pain and or palpitation (8) PVD (peripheral vascular disease): Plan: History asymptomatic carotid stenosis, occlusion of infra renal abdominal aorta and bilateral common iliac arteries, peripheral PVD. Follows with [facility] vascular, conservative measures recommended Continue aspirin Hold statin with current rhabdomyolysis (9) Dyslipidemia: Plan: Hold statin with rhabdomyolysis (10) Diabetes mellitus, type II: Plan: Hold Metformin NovoLog sliding scale A1c in a.m.-6.4 (11) Tobacco use: Plan: Denies nicotine patch Does not want to quit (12) Anxiety and depression: Plan: Continue duloxetine (13) Dementia: Plan: Family report patient at baseline mental status DVT Prophylaxis Heparin SQ DNR/DNI as per discussion with pt Follows with [facility] for [facility] care Will be transferred to [facility] this afternoon (14) Spinal stenosis: Admission and Anticipated Discharge Date Admission Date: December 02, 2021 Subjective December 03, 2021 The patient was seen and examined in medical telemetry unit He has been complaining of severe pain involving the right lower chest and right groin He complains some shortness of breath as well 12/04/2021 Patient was seen and examined in medical telemetry unit in presence of the daughter He has been feeling much better and the pain seems to be reasonably controlled 12/05/2021 The patient was seen and examined in medical telemetry unit He has been feeling reasonably better today with minimal pain Has minimal shortness of breath as well 12/06/2021 The patient was seen and examined in medical telemetry unit He has been feeling much better Only complains minimal cough without any increasing shortness of breath Denies any other symptoms Review of Systems Review of Systems: All systems reviewed and are unremarkable except as noted below Respiratory: Mild shortness of breath at rest with chest pain Physical Exam Physical Exam: Lying in bed comfortably Constitutional: + ill appearing and + thin Eyes: PERRL, conjunctivae normal, anicteric sclerae ENMT: external ear and nose normal, oropharynx normal Neck: trachea midline, no thyromegaly Respiratory: no respiratory distress (Mild to moderate shortness of breath) Auscultation: + crackles (Coarse crackles bibasilarly more on the right side) Cardiovascular: Rate/Rhythm: regular rate and regular rhythm; not tachycardic Heart Sounds: normal S1 and normal S2; no murmur Extremities: no edema Gastrointestinal (Abdomen): Inspection/Auscultation: normal bowel sounds; abdomen not distended Percussion/Palpation: abdomen soft; abdomen nontender Musculoskeletal: No acute arthritis involving any joint Skin: Minimal generalized bruising Results & Data Results & Data ([facility]) Vital Signs (Past 12 Hours) Vital Signs Temp Pulse Pulse Pulse Resp BP Pulse Ox 12/06/21 10:40 79 12/06/21 07:21 36.8 C 90 20 115/70 91 12/06/21 03:13 37.1 C 86 16 114/62 93 12/05/21 23:46 84 Medications Administered Current Inpatient Medications Acetaminophen (Acetaminophen 325 Mg Tab) 650 mg PO Q4H PRN PRN Reason: Pain or Fever Stop: 01/01/22 21:31 Last Admin: 12/04/21 01:38 Dose: 650 mg Documented by: Albuterol (Albut/Ipratrop 3mg/0.5mg Neb 3 Ml Vial) 3 ml NEB QIDR PRN; Protocol PRN Reason: Shortness Of Breath Or Wheezing Stop: 01/02/22 06:59 Aspirin (Aspirin 81 Mg Ectab) 81 mg PO DAILY REECE Stop: 01/02/22 08:59 Last Admin: 12/06/21 08:26 Dose: 81 mg Documented by: Dextrose (Dextrose 50% 50 Ml Syringe) 25 - 50 ml IV UD PRN; Protocol PRN Reason: Hypoglycemia Protocol Stop: 01/01/22 21:31 Diclofenac Sodium (Diclofenac Sod 1% Gel 100 Gm Tube) 2 gm EXT BID REECE Stop: 01/02/22 20:59 Last Admin: 12/06/21 09:59 Dose: 2 gm Documented by: Duloxetine HCl (Duloxetine Hcl 20 Mg Cap) 20 mg PO DAILY REECE Stop: 01/02/22 08:59 Last Admin: 12/06/21 08:26 Dose: 20 mg Documented by: Finasteride (Finasteride 5 Mg Tab) 5 mg PO DAILY REECE Stop: 01/02/22 08:59 Last Admin: 12/06/21 08:26 Dose: 5 mg Documented by: Fluticasone/Vilanterol (Fluticasone/Vilanterol 200/25mcg 14 Puffs/Inhaler) 1 puffs INH DAILY REECE Stop: 01/02/22 08:59 Last Admin: 12/06/21 08:27 Dose: 1 puffs Documented by: Folic Acid (Folic Acid 1 Mg Tab) 1 mg PO DAILY REECE Stop: 01/02/22 08:59 Last Admin: 12/06/21 08:26 Dose: 1 mg Documented by: Glucagon (Glucagon For Inj 1 Mg Vial) 1 mg SQ UD PRN; Protocol PRN Reason: Hypoglycemia Protocol Stop: 01/01/22 21:31 Glucose (Glucose 10 Tabs/Tube) 4 - 8 tabs PO UD PRN; Protocol PRN Reason: Hypoglycemia Protocol Stop: 01/01/22 21:31 Glucose (Glucose 40% Gel 15 Gm Tube) 15 - 30 gm PO UD PRN; Protocol PRN Reason: Hypoglycemia Protocol Stop: 01/01/22 21:31 Guaifenesin/Dextromethorphan (Guaifenesin/Dextrom Syrup 200mg/20mg 10ml Udc) 10 ml PO Q6H PRN PRN Reason: Cough Stop: 01/02/22 14:40 Heparin Sodium (Porcine) (Heparin Sod 5,000 Unit/0.5 Ml Vial) 5,000 units SQ Q12 REECE Stop: 01/01/22 21:31 Last Admin: 12/06/21 08:27 Dose: 5,000 units Documented by: Insulin Aspart (Insulin Aspart Per Unit) 0 units SC ACHS [facility] Stop: 01/01/22 21:31 Last Admin: 12/06/21 07:35 Dose: Not Given Documented by: Lidocaine (Lidocaine 5% 1 Patch) 1 patch TD HS [facility] Stop: 01/01/22 21:31 Last Admin: 12/05/21 20:24 Dose: 1 patch Documented by: Miscellaneous (Remove Lidoderm Patch) 1 ea N/A QAM [facility] Stop: 01/02/22 08:59 Last Admin: 12/06/21 08:29 Dose: 1 ea Documented by: Miscellaneous (Carbohydrates For Hypoglycemia ) 15 - 30 gm PO UD PRN PRN Reason: Hypoglycemia Protocol Stop: 01/01/22 21:31 Morphine Sulfate (Morphine Sulfate 2 Mg/Ml Carp) 2 mg IV Q4H PRN PRN Reason: Pain Stop: 12/18/21 08:33 Last Admin: 12/05/21 20:21 Dose: 2 mg Documented by: Oxycodone HCl (Oxycodone Hcl Ir 5 Mg Tab (Immediate Release)) 5 mg PO Q4H PRN PRN Reason: Moderate Pain Stop: 12/16/21 21:31 Last Admin: 12/06/21 08:26 Dose: 5 mg Documented by: Polyethylene Glycol (Polyethylene (Miralax) 17 Gm Pack) 17 gm PO DAILY PRN PRN Reason: Constipation Stop: 01/01/22 21:31 Prednisone (Prednisone 5 Mg Tab) 15 mg PO DAILY [facility] Stop: 03/19/22 08:59 Last Admin: 12/06/21 08:26 Dose: 15 mg Documented by: Tamsulosin HCl (Tamsulosin Hcl 0.4 Mg Cap) 0.4 mg PO DAILY [facility] Stop: 01/02/22 08:59 Last Admin: 12/06/21 08:26 Dose: 0.4 mg Documented by: Vitamin D (Cholecalciferol 1,000 Units 25 Mcg Tab) 1,000 units PO DAILY REECE Stop: 01/02/22 08:59 Last Admin: 12/06/21 08:26 Dose: 1,000 units Documented by: (1) Rhabdomyolysis Encounter type: initial encounter Rhabdomyolysis type: traumatic Qualified Code(s): T79.6XXA - Traumatic ischemia of muscle, initial encounter (2) COPD (chronic obstructive pulmonary disease) COPD type: unspecified COPD Qualified Code(s): J44.9 - Chronic obstructive pulmonary disease, unspecified (3) Fall Encounter type: initial encounter Qualified Code(s): W19.XXXA - Unspecified fall, initial encounter
[2021-12-06 11:19] LABS: BUN Creatinine Ratio 46.7 (10-20); Creatinine Clr Calc Pharmacy 110.3 ml/min; Est GFR (African American) 124.7 ml/min; Est GFR (Non-African American) 107.6 ml/min; Potassium 3.7 mmol/L (3.5-5.1)
[2021-12-06] MEDS ORDERED: SODIUM CHLORIDE 1 GM TABLET PO ONE (11:33)
--- NOTE | 2021-12-07 09:23 | Discharge Summary ---
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 Patient states yesterday he was trying to get up out of chair, when chair slid causing patient to hit his right side on the arm of chair and fall. Patient states did not hit his head, did not lose consciousness. He reports he was unable to get up for 5- 6 hours, and struggle to get up. He complains of pain to right side, that is aggravated with movement. Patient reports chronic low back pain, chronic bilateral leg pain. He also reports chronic right forearm pain. He reports his chronic pain is at baseline. He states can only ambulate approximately 20 feet at baseline secondary to extremity pain. Reports in past has used oxycodone for pain with limited relief. Denies headache, neck pain, chest pain. Patient states did not eat or drink yesterday or today. Patient reports chronic wheezing, he feels it is improved from prior secondary to being on a daily inhaler. He no longer reports needing to use nebulizers throughout the day. Reports sometimes will cough however denies any increased cough or sputum production. Denies any increased shortness of breath. Patient is to use 2 L oxygen via nasal cannula continuous, however patient refuses to use at home. Denies fever/chills, diaphoresis, N/V/D/C, ROBBINS, dizziness, syncope, vision changes, neck pain, orthopnea, palpitations, sore throat, choking, otalgia, rhinorrhea, abdominal pain, paresthesias, extremity edema, rashes, urinary symptoms. Admission Exam Per Admitting Provider Physical Exam: General: chronic ill appearing, thin elderly male, no acute distress Head: normocephalic, atraumatic Eyes: PERRL, EOM's intact, conjunctiva non-injected, anicteric ENT: normal inspection external ears, nose, mucous membranes dry Neck: supple, trachea midline, non-tender, ROM intact Lungs: 92% on 2L via NC, no respiratory distress, +wheezing throughout Chest: +tenderness to palpation right lower lateral ribs, no crepitus no ecchymosis CV: RRR, no murmur, no JVD, no pretibial edema Abd: normal BS, soft, non-tender Ext: no cyanosis, no erythema, no calf tenderness Neuro: A&O x 3, no focal deficits noted, normal affect Skin: warm, dry Principal Diagnosis Mechanical fall, ambulatory dysfunction, rhabdomyolysis, chronic respiratory failure with hypoxia, COPD, CAD Discharge Exam Lying in bed comfortably Constitutional + ill appearing and + thin Eyes PERRL, conjunctivae normal, anicteric sclerae ENMT external ear and nose normal, oropharynx normal Neck trachea midline, no thyromegaly Respiratory no respiratory distress (Mild to moderate shortness of breath) Auscultation: + crackles (Coarse crackles bibasilarly more on the right side) Cardiovascular Rate/Rhythm: regular rate and regular rhythm; not tachycardic Heart Sounds: normal S1 and normal S2; no murmur Extremities: no edema Gastrointestinal (Abdomen) Inspection/Auscultation: normal bowel sounds; abdomen not distended Percussion/Palpation: abdomen soft; abdomen nontender Discharge Data Allergies Allergy/AdvReac Type Severity Reaction Status Date / Time cortisone AdvReac Intermediate BODY FEELS Verified 12/02/21 18:00 LIKE IT'S EXPLODING Consultations 12/02/21 18:04 ED Decision to Admit Stat Ordered Studies 12/02/21 15:06 CT abd pelvis IV con only Stat Hospital Course (1) Fall: Mechanical fall and was on the floor for many hours Rib pain, probable rib contusion, no fractures identified on skeletal survey Chronic back pain, Chronic extremity pain Incentive spirometer Fall precautions Lidocaine patch, oxycodone prn pain Appreciate PT and OT evaluation with recommendation to rehab to continue physical therapy Pain seems to be reasonably controlled He will be transferred to [facility] this afternoon Mild hyponatremia Will give 1 g of sodium orally now Was advised to take extra salt in diet (2) Rhabdomyolysis: CPK: 2488 IVF-CK has been normalized Was advised to drink more fluid (3) Ambulatory dysfunction: Patient is 81-year-old male with PMH PAD, bilateral ICA stenosis, 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 Denies hitting head or LOC PT OT evaluation and possible placement Remains stable and will be transferred (4) Dehydration: In ER pt found to be hypotensive 84/50 up to 93/67 after 500ml NSS Blood pressure is maintained As advised to drink lipid more fluid (5) Chronic respiratory failure with hypoxia: As below Chronically on 2 L of oxygen to maintain saturation His COPD and respiratory failure and not any worse (6) COPD (chronic obstructive pulmonary disease): In ER reported to be hypoxic and was placed on 4L oxygen via NC with sat 97% Pt is to use 2L oxygen via NC continuously, however refuses to use Noted wheezing on exam. No reported increased cough, sputum production or SOB. Does not appear to be COPD exacerbation Continue 2L oxygen Duonebs Continue home inhalers Continue chronic prednisone (7) CAD (coronary artery disease): Denies any chest pain and or palpitation (8) PVD (peripheral vascular disease): History asymptomatic carotid stenosis, occlusion of infra renal abdominal aorta and bilateral common iliac arteries, peripheral PVD. Follows with [facility] vascular, conservative measures recommended Continue aspirin Hold statin with current rhabdomyolysis (9) Dyslipidemia: Hold statin with rhabdomyolysis (10) Diabetes mellitus, type II: Hold Metformin NovoLog sliding scale A1c in a.m.-6.4 (11) Tobacco use: Denies nicotine patch Does not want to quit (12) Anxiety and depression: Continue duloxetine (13) Dementia: Family report patient at baseline mental status DVT Prophylaxis Heparin SQ DNR/DNI as per discussion with pt Follows with [facility] for routine care Will be transferred to [facility] this afternoon (14) Spinal stenosis: Total Time Total Time Spent Total Time Spent (In Minutes): 40 minutes Discharge Plan Discharge Items Patient Disposition: Transfer Inpatient Rehab Fac Reason For Visit: FALL Discharge Diagnosis: Mechanical fall, ambulatory dysfunction, rhabdomyolysis, chronic respiratory failure with hypoxia, COPD, CAD Condition on Discharge: Fair Activity: As commented below Activity Comment: Continue PT and OT Non-emergency contact: Primary Care Provider Call non-emergency contact if: you have any medication questions and your symptoms worsen Follow-up/Referrals: Radha Lopez PA-C [Primary Care Provider] - (Please make an appointment with your primary care provider within 7 days following discharge from the facility) Diet: Carb Consistent or DM2 and Heart Healthy Addtl Attending Provider Instructions: Please take precautions to avoid fall Take your medications as advice Use less of narcotic pain medications to avoid confusion, constipation, drowsiness and addiction Continue take your oxygen as advised Try to use a little extra table salt in your meals Pending Studies at Discharge: No Stand-Alone Forms: My [facility] Skilled Items Patient informed of condition?: Yes DNR: Yes Discharge Level of Care: Acute rehab Communicable Disease: No Discharge Prognosis: Stable Lines: None Urinary Catheter: No Medications and DC Order Prescriptions: New lidocaine 5 % Adhesive Patch,Medicated 1 patch transdermal HS 10 Days Qty: 10 RF: 0 oxycodone 5 mg Tablet 2.5 mg PO Q6H PRN (Reason: pain) 5 Days Qty: 10 RF: 0 diclofenac sodium [Voltaren Arthritis Pain] 1 % Gel 2 g EXT BID 10 Days Qty: 30 RF: 0 Continued folic acid 1 mg tablet 1 mg PO DAILY RF: 0 cholecalciferol (vitamin D3) 25 mcg (1,000 unit) capsule 25 mcg PO DAILY RF: 0 aspirin 81 mg tablet,delayed release (DR/EC) 81 mg PO DAILY RF: 0 alendronate 70 mg tablet 70 mg PO Q7D RF: 0 tiotropium bromide 18 mcg capsule, w/inhalation device 1 cap inhalation DAILY RF: 0 prednisone 5 mg Tablet 15 mg PO DAILY RF: 0 albuterol sulfate [Ventolin HFA] 90 mcg/actuation HFA aerosol inhaler 2 puff INHALATION Q4H PRN (Reason: Shortness Of Breath Or Wheezing) RF: 0 albuterol sulfate 2.5 mg /3 mL (0.083 %) solution for nebulization 2.5 mg INHALATION Q6H PRN (Reason: Shortness Of Breath Or Wheezing) RF: 0 nystatin 100,000 unit/mL suspension 1 ml PO QID RF: 0 duloxetine 20 mg capsule,delayed release(DR/EC) 20 mg PO DAILY RF: 0 metformin 500 mg Tablet 500 mg PO BID RF: 0 tamsulosin 0.4 mg capsule 0.4 mg PO DAILY RF: 0 fluticasone propion-salmeterol [Advair Diskus] 500-50 mcg/dose Blister With Device 1 inh INHALATION BID RF: 0 finasteride 5 mg tablet 5 mg PO DAILY RF: 0 rosuvastatin 10 mg Tablet 10 mg PO DAILY RF: 0 Discharge Orders: Discharge Order (Routine); Ordered 12/06/21 Ordered By: Jaron Crowley Admission Data Admit Date/Time: 12/02/21 18:39 Attending Provider: Jaron Crowley Admit Provider: Mihir Vences Primary Care Provider: Radha Lopez Other Providers: Mihir Vences ; [facility] Other Interventions: Discharge Summary Assessment (RN) Last Done: 12/06/21 14:07
== END 2021-12-06 19:36 | DRG 558 ==
LOC: ED 12:21 → EDINP 18:39 → SUATTDRO 18:39 → 2W 21:00